=== PATIENT | female | born 1975 | race Caucasian/White ===

== ENCOUNTER 2022-02-03 09:54 | Outpatient (CLI) | payer OTHER, SELFPAY ==
--- NOTE | 2022-02-03 10:15 | MR_ITS ---
[address] [address] Phone:?[phone] Fax:?[phone] Referring Physician Information: Sacha Aldana M.D. [address] [place] [id number] Phone:?[phone] Fax:?[phone] Patient:Marion Ruiz D.O.B:?1975 Sex:?Female Phone:?[phone] [facility] MRN:?[id number] Exam Date:?02/03/2022 ? EXAM: MRI OF THE RIGHT SHOULDER CLINICAL INFORMATION: The patient is a 46-year-old female with right shoulder pain. Evaluate for recurrent rotator cuff tear. PRIOR SURGERY: The patient has a history of prior right shoulder surgery. COMPARISON STUDIES: Comparison is made to the prior MRI examination dated 03/08/2019. TECHNICAL INFORMATION: Using a 1.5T MR scanner and a localizing shoulder surface coil: 3.0 mm?coronal obliques: PD, T2, STIR 3.0 mm?sagittal obliques: PD, T2 3.0 mm?axials: PD, T2 FINDINGS: Articular/Extraarticular collections: Effusion: None. Subacromial/subdeltoid: No evidence for bursitis. Subcoracoid: No evidence for bursitis. Osseous structures: Proximal humerus: Postsurgical changes of the greater tuberosity region are present, in keeping with prior supraspinatus tendon repair. No evidence for greater or lesser tuberosity fracture can be seen. No Hill-Sachs or reverse Hill-Sachs lesion is identified. Glenoid: No acute bony abnormality of the glenoid fossa or glenoid neck can be seen. Acromioclavicular joint: There is evidence for prior acromioplasty and distal clavicular resection. Coracoacromial arch: Acromion morphology: Type I to II. No evidence for os acromiale. Acromiohumeral space: At the lower limits of normal. Coracohumeral space: Within normal limits. Rotator cuff and deltoid: Supraspinatus: The patient is status post supraspinatus repair. No evidence for recurrent, full-thickness tearing or retraction of the supraspinatus tendon fibers can be seen. No partial-thickness tearing is noted. No atrophic changes of the supraspinatus muscle belly are present. Infraspinatus: Mild infraspinatus tendinosis can be seen. There is no evidence for full or partial-thickness tearing. No atrophic changes of the infraspinatus muscle belly are identified. Teres minor: No evidence for tendinosis, tearing, or associated muscle belly atrophy. Subscapularis: Mild subscapularis tendinosis can be seen. There is no evidence for full or partial-thickness tearing. No atrophic changes of the subscapularis muscle belly are noted. Deltoid: No evidence for strain or tearing. Biceps tendon: The intra-articular and biceps sulcus portions of the biceps tendon are normal. There is no evidence for rupture, dislocation, or subluxation. Glenohumeral joint and labrum: Articular Cartilage: No chondral injuries along the articular surfaces of the glenohumeral articulation can be seen. No osteoarthritic changes are identified. Labrum: The anterior, posterior, superior, and inferior portions of the labrum appear intact. No evidence for paralabral ganglion cyst formation can be seen. Capsular Soft Tissues: Mild thickening of the capsular structures of the glenohumeral articulation can be seen in the region of the axillary recess and rotator cuff interval. No definite MR signs of adhesive capsulitis are noted. CONCLUSION: 1. Status post supraspinatus repair. There is no evidence for recurrent full or partial-thickness tearing of the supraspinatus tendon fibers. 2. Mild infraspinatus and subscapularis tendinosis. 3. Status post acromioplasty and distal clavicular resection. 4. No definite injuries to the glenoid labrum or long head of the biceps can be seen. 5. No osteoarthritic changes of the glenohumeral articulation are present. [facility] Electronically signed on 02/03/2022 1:01:00 PM by Juan J Finley M.D.
== END 2022-02-03 09:55 | disposition home or self-care (01) ==
LOC: MRI 09:54
PROVIDERS: PCP Physician Assistant Medical; Visit Provider Orthopaedic Surgery
DX: M25.511 Pain in right shoulder (principal)
CPT/HCPCS: 73221

== ENCOUNTER 2022-04-08 07:49 | Inpatient (IN) | payer OTHER, SELFPAY ==
[2022-04-08] VITALS (14 sets, daily range): BP systolic 103–157; BP diastolic 77–91; PULSE 85–109; RESP 14–20; TEMP 36.5–36.8; O2SAT 94–98; BMI 40.7; BMI 40.6
--- NOTE | 2022-04-08 08:12 | CRLHL7_ITS ---
For Patients: As a result of the Century Cures Act, medical imaging exams and procedure reports are released immediately into your electronic medical record. You may view this report before your referring provider. If you have questions, please contact your health care provider. INDICATION: Severe back pain and epigastric pain; nausea. COMPARISON: CT abdomen and pelvis without intravenous or oral contrast September 18, 2014. TECHNIQUE: CT abdomen and pelvis with intravenous contrast; coronal and sagittal reformats. FINDINGS: Calcified granulomas left lingula and right middle lobe. Status post gastric bypass surgery. Mild diffuse fatty infiltration of the liver. No focal hepatic or splenic pathology. Peripancreatic inflammatory changes surrounding the head and uncinate process of the pancreas indicating acute pancreatitis. No evidence of pancreatic ductal dilatation. No evidence of pancreatic necrosis. Status post cholecystectomy. No adrenal pathology. No kidney stones or obstructive uropathy. no retroperitoneal lymphadenopathy. No evidence of abdominal or pelvic ascites. No pneumoperitoneum or intestinal obstruction. Status post hysterectomy. Impression : Acute pancreatitis without any evidence of pancreatic necrosis. 1. Status post cholecystectomy and gastric bypass surgery. 2. Mild diffuse fatty infiltration of the liver. Please note that all CT scans at this facility use dose modulation, iterative reconstruction, and/or weight-based dosing when appropriate to reduce radiation dose to as low as reasonably achievable. Dictated by Ning Marcelino MD @ 04/08/2022 9:35:08 AM (Electronically Signed)
--- NOTE | 2022-04-08 08:14 | ED_ITS ---
HPI - General Adult General Chief complaint: Back Injury/Pain Stated complaint: severe back pain Time Seen by Provider: 04/08/22 08:16 History of Present Illness HPI narrative: This 46-year-old female comes in reporting upper epigastric pain and back pain. This pain woke her up early this morning. She states that it is 7/10 in severity. She has associated nausea but no vomiting or diarrhea she does not knee injury event or strenuous activity. She states that the pain is worse with the bumps in the car ride on the way here. She has a remote history of gastric bypass 9 years ago. She has had her gallbladder and appendix removed. She does not report any prior problems. Related Data Home Medications Medication Instructions Recorded Confirmed cyclobenzaprine 5 mg tablet 5 mg PO DAILY PRN 01/25/22 04/08/22 estradiol 2 mg tablet 2 mg PO DAILY 01/25/22 04/08/22 multivitamin 1 tab PO QAM 01/25/22 04/08/22 omeprazole 20 mg capsule,delayed 20 mg PO DAILY 01/25/22 02/21/22 release sertraline 50 mg tablet 50 mg PO DAILY 01/25/22 04/08/22 tramadol 50 mg tablet 50 mg PO Q12H PRN 01/25/22 04/08/22 varenicline 1 mg tablet 1 mg PO BID 01/25/22 04/08/22 cholecalciferol (vitamin D3) 125 125 mcg PO DAILY 04/08/22 04/08/22 mcg (5,000 unit) capsule metformin 500 mg tablet 500 mg PO DAILY 04/08/22 04/08/22 sertraline 100 mg tablet 100 mg PO DAILY 04/08/22 04/08/22 spironolactone 100 mg tablet 100 mg PO DAILY 04/08/22 04/08/22 Allergies Allergy/AdvReac Type Severity Reaction Status Date / Time cefaclor Allergy Verified 02/21/22 14:40 Penicillins Allergy Verified 02/21/22 14:40 Sulfa (Sulfonamide Allergy Anaphylaxis Verified 02/21/22 14:40 Antibiotics) yellow dye Allergy Verified 02/21/22 14:40 Review of Systems Status of ROS: Reports: 10 or more systems reviewed and unremarkable except as noted in History and below Narrative: Constitutional: No fevers, no weight gain or loss. Eyes: No discharge. No vision changes. HENT: No congestion, no sore throat, no ear pain. Cardiovascular: No chest pain, no palpitations. Respiratory: No shortness of breath, no wheezes, no cough. Gastrointestinal: No vomiting, no diarrhea. Upper epigastric abdominal pain radiating through to the back. Genitourinary: No dysuria, no hematuria. Musculoskeletal: Normal range of motion. Skin: No rashes, no pruritis. Neurological: No dizziness, weakness, sensory change, speech change. Endo/Heme/Allergies: No bruising or bleeding. No polydipsia. Pysch: no suicidality, no anxiety, no insomnia. All other systems reviewed and are negative. [facility] Medical History Depression GERD (gastroesophageal reflux disease) Sleep apnea Surgical History H/O gastric bypass History of appendectomy History of arthroscopy of shoulder History of carpal tunnel release of both wrists History of cholecystectomy History of hysterectomy History of removal of both ovaries Status post arthroscopy of right shoulder (04/11/19) Social History Smoking Status: Former smoker What tobacco products do you use: cigarettes Smoking quit date/years: >15 years ago Do you use any of these nicotine containing products: None Second hand tobacco smoke exposure: No How often do you have a drink containing alcohol: never AUDIT-C Alcohol total score: 0 Non-prescribed substance use: denies use Exam Narrative: Exam Narrative: Constitutional: Well-developed, well-nourished, no acute distress. HEENT: Normocephalic, atraumatic. Neck: Normal range of motion. Nontender. Supple. Heart: Regular. No murmurs. Normal rate. Intact distal pulses. Lungs: Clear to auscultation. No chest discomfort. No wheezes, rhonchi, or rales. Abdomen: Normal bowel sounds. Tenderness in the upper epigastric region. Mild rebound tenderness. Genitalia: Deferred. Back: No midline tenderness. Normal range of motion. Extremities: Normal range of motion. No injury. Skin: Intact. No rash. Warm. No erythema or pallor. Neurologic: No altered sensation. No weakness. Alert and oriented. Psychiatric: No suicidality. No anxiety or depression. No insomnia. Nursing notes and vitals signs are reviewed. Const: Vital Signs, click to edit/add: Vital Signs - 24 hr 04/08/22 07:56 04/08/22 08:46 Temperature 98.0 F Pulse Rate [Right Pulse Oximeter] 109 H 92 Respiratory Rate 20 18 Blood Pressure [Ri ght Upper Arm] 157/91 H 135/77 Pulse Oximetry 97 94 Oxygen Delivery Me thod Room Air Room Air Course Vital Signs Vital signs: Initial Vital Signs Temperature 98.0 F 04/08/22 07:56 Temperature Source Temporal Artery Scan 04/08/22 07:56 Pulse Rate 109 H 04/08/22 07:56 Pulse Rhythm 04/08/22 07:56 Respiratory Rate 20 04/08/22 07:56 Blood Pressure 157/91 H 04/08/22 07:56 Blood Pressure Mean 113 04/08/22 07:56 Blood Pressure Position Sitting 04/08/22 07:56 Pulse Oximetry 97 04/08/22 07:56 Oxygen Delivery Method 04/08/22 07:56 Vital Signs Temperature 98.0 F 04/08/22 07:56 Pulse Rate 109 H 04/08/22 07:56 Respiratory Rate 20 04/08/22 07:56 Blood Pressure 157/91 H 04/08/22 07:56 Pulse Oximetry 97 04/08/22 07:56 Oxygen Delivery Method 04/08/22 07:56 Temperature 98.0 F 04/08/22 07:56 Pulse Rate 92 04/08/22 08:46 Respiratory Rate 18 04/08/22 08:46 Blood Pressure 135/77 04/08/22 08:46 Pulse Oximetry 94 04/08/22 08:46 Oxygen Delivery Method 04/08/22 08:46 Medical Decision Making MDM Narrative Medical decision making narrative: This patient comes in with upper epigastric abdominal pain radiating through to her back. An IV is established where she received 2 separate doses of Dilaudid 0.5 mg and a dose of Zofran 4 mg. She also received a L of normal saline. CT imaging of the abdomen and pelvis shows evidence of acute pancreatitis. Lipase is is significantly elevated at around 11,600. There are no other complications identified in her lab and imaging results. Her vital signs are within normal range. She is sufficiently treated with regard to her symptoms with the medicines given. I did speak with the hospitalist conduit helper, Dr. Macedo, who will arrange for her admission. Lab Data Labs: Lab Results 04/08/22 04/08/22 04/08/22 Range/Units 08:20 08:20 08:20 WBC 9.70 (4.50-11.00) K/uL RBC 5.19 (4.00-5.20) m/uL Hgb 14.4 (12.0-16.0) gm/dL Hct 45.7 (33.0-51.0) % MCV 88 (80-100) fL MCH 28 (26-34) pg MCHC 32 (32-36) gm/dL RDW Coeff of Monica 14.7 (11.5-15.5) % Plt Count 340 (140-440) K/uL Neut % (Auto) 71.2 (42.0-72.0) % Lymph % (Auto) 20.0 (20-44) % Summers % (Auto) 6.9 (0.0-11.0) % Eos % (Auto) 1.3 (0.0-7.0) % Baso % (Auto) 0.5 (0.0-3.0) % Neut # (Auto) 6.90 (1.7-7.0) K/uL Lymph # (Auto) 1.94 (0.90-2.90) K/uL Summers # (Auto) 0.70 (0.00-0.90) K/UL Eos # (Auto) 0.13 (0.00-0.50) K/uL Baso # (Auto) 0.05 (0.00-0.30) K/uL Sodium 142 (135-149) mmol/L Potassium 4.3 (3.6-5.1) mmol/L Chloride 108 (96-114) mmol/L Carbon Dioxide 26 (20-32) mmol/L BUN 10 (5-24) mg/dL Creatinine 0.7 (0.5-1.5) mg/dL Estimated Creat Clear 84.84 Estimated GFR 109 ml/min Glucose 85 (60-115) mg/dL Calcium 9.3 (8.4-10.6) mg/dL Total Bilirubin 0.3 (0.1-1.5) mg/dL Direct Bilirubin 0.1 (0.0-0.5) mg/dL AST 23 (12-35) U/L ALT 18 (4-35) U/L Alkaline Phosphatase 101 (40-150) U/L Total Protein 7.8 (6.0-8.3) g/dL Albumin 4.8 (3.3-5.0) g/dL Lipase 89582 H (23-300) U/L POC Troponin I 0.00 L (0.01-0.04) ng/ml Imaging Data CT scan - abdomen: Radiologist's impression: Acute pancreatitis without any evidence of pancreatic necrosis. 1. Status post cholecystectomy and gastric bypass surgery. 2. Mild diffuse fatty infiltration of the liver. Discharge Plan Discharge Clinical Impression: Acute pancreatitis Prescriptions: No Action varenicline 1 mg tablet 1 mg PO BID cyclobenzaprine 5 mg tablet 5 mg PO DAILY PRN sertraline 50 mg tablet 50 mg PO DAILY estradiol 2 mg tablet 2 mg PO DAILY omeprazole 20 mg capsule,delayed release(DR/EC) 20 mg PO DAILY tramadol 50 mg tablet 50 mg PO Q12H PRN multivitamin Tablet 1 tab PO QAM sertraline 100 mg tablet 100 mg PO DAILY cholecalciferol (vitamin D3) 125 mcg (5,000 unit) capsule 125 mcg PO DAILY metformin 500 mg tablet 500 mg PO DAILY spironolactone 100 mg tablet 100 mg PO DAILY Follow Up/Referrals: Marianela Ruby PA-C [Primary Care Provider] -
[2022-04-08 08:32] LABS: Basophils Absolute Auto 0.05 K/uL (0.00-0.30); Basophils Percent Auto 0.5 % (0.0-3.0); Eosinophils Absolute Auto 0.13 K/uL (0.00-0.50); Eosinophils Percent Auto 1.3 % (0.0-7.0); Hematocrit 45.7 % (33.0-51.0); Hemoglobin* 14.4 gm/dL (12.0-16.0); Immature Granulocytes Abs Auto 0.01 K/uL (0.00-0.30); Immature Granulocytes Pct Auto 0.1 %; Lymphocytes Absolute Auto 1.94 K/uL (0.90-2.90); Mean Corpuscular HGB Conc 32 gm/dL (32-36); Mean Corpuscular Hemoglobin 28 pg (26-34); Mean Corpuscular Volume 88 fL (80-100); Monocytes Percent Auto 6.9 % (0.0-11.0); Neutrophils Percent Auto 71.2 % (42.0-72.0); Platelet Count* 340 K/uL (140-440); RDW Coefficient of Variation % 14.7 % (11.5-15.5); Red Blood Count 5.19 m/uL (4.00-5.20)
[2022-04-08 08:35] LABS: Slide Review Reflex No
[2022-04-08] MEDS: HYDROmorphone 0.5 mg/0.5 ml inj IVP ×7 (08:41→20:19)
[2022-04-08] MEDS: ONDANSETRON 2 MG/ML inj 4 MG IVP (08:41)
[2022-04-08 08:44] LABS: Albumin* 4.8 g/dL (3.3-5.0); Chloride* 108 mmol/L (96-114); Sodium* 142 mmol/L (135-149)
[2022-04-08 08:45] LABS: Potassium* 4.3 mmol/L (3.6-5.1)
[2022-04-08 08:47] LABS: Alanine Aminotransferase* 18 U/L (4-35); Alkaline Phosphatase* 101 U/L (40-150); Aspartate Amino Transferase* 23 U/L (12-35); Bilirubin Direct* 0.1 mg/dL (0.0-0.5); Bilirubin Total* 0.3 mg/dL (0.1-1.5); Blood Urea Nitrogen* 10 mg/dL (5-24); Carbon Dioxide* 26 mmol/L (20-32); Glucose* 85 mg/dL (60-115); Total Protein* 7.8 g/dL (6.0-8.3)
[2022-04-08 08:48] LABS: Calcium* 9.3 mg/dL (8.4-10.6)
[2022-04-08 08:53] LABS: Creatinine* 0.7 mg/dL (0.5-1.5); Est. Creatinine Clearance* 84.84; Estimated Glomerular Filt Rate 109 ml/min
--- NOTE | 2022-04-08 09:02 | ED.NURSE ---
Report received from VIRIDIANA Alexis.
[2022-04-08 09:09] LABS: Lipase* 11624 U/L (23-300)
[2022-04-08] MEDS: 0.9 % SODIUM CHLORIDE 1000 ml 1,000 ML IV (09:22)
[2022-04-08 10:41] LABS: SARS PCR* Negative SARS-CoV-2 (Negative)
--- NOTE | 2022-04-08 11:12 | ED.NURSE ---
Report given to VIRIDIANA Serrano. Pt up to BR independently, tolerates well. Asking for pain meds before moving down to M/S.
--- NOTE | 2022-04-08 11:41 | PM.IMHP1 ---
Hospitalist- H&P: HPI History of Present Illness Date Seen: 04/08/22 Chief complaint: severe back pain Narrative: Marylu Ruiz is a 46 year old female with PMhx noted below including hx of obesity, PCOS (on metformin/aldactone), gastric bypass surgery, depression, tobacco use disorder presenting for evaluation of epigastric abdominal pain. The patient woke up this morning with epigastric abdominal pain, sharp, 10/10 radiating to back. She endorses nausea, denies vomiting. She denies chest pain, chest pressure, sob. In the ED Lipase noted to be >11,000. CT AP showed Acute pancreatitis without any evidence of pancreatic necrosis.Status post cholecystectomy and gastric bypass surgery. Mild diffuse fatty infiltration of the liver. She denies alcohol use, denies new medications. Denies hx of pancreatitis Review of Systems Status of ROS: Reports: 10 or more systems reviewed and unremarkable except as noted in History and below [facility] Medical History Depression GERD (gastroesophageal reflux disease) Sleep apnea Surgical History H/O gastric bypass History of appendectomy History of arthroscopy of shoulder History of carpal tunnel release of both wrists History of cholecystectomy History of hysterectomy History of removal of both ovaries Status post arthroscopy of right shoulder (04/11/19) Social History Smoking Status: Former smoker What tobacco products do you use: cigarettes Smoking quit date/years: >15 years ago Do you use any of these nicotine containing products: None Second hand tobacco smoke exposure: No How often do you have a drink containing alcohol: never AUDIT-C Alcohol total score: 0 Non-prescribed substance use: denies use Meds Home Medications and Allergies Home Medications Medication Instructions Recorded Confirmed Type estradiol 2 mg tablet 2 mg PO DAILY 01/25/22 04/08/22 History multivitamin 1 tab PO QAM 01/25/22 04/08/22 History omeprazole 20 mg capsule,delayed 20 mg PO BID 01/25/22 04/08/22 History release tramadol 50 mg tablet 50 mg PO Q12H PRN 01/25/22 04/08/22 History varenicline 1 mg tablet 1 mg PO BID 01/25/22 04/08/22 History cholecalciferol (vitamin D3) 125 125 mcg PO DAILY 04/08/22 04/08/22 History mcg (5,000 unit) capsule cyclobenzaprine 10 mg tablet 10 mg PO TID PRN 04/08/22 04/08/22 History metformin 500 mg tablet 500 mg PO BIDWM 04/08/22 04/08/22 History sertraline 100 mg tablet 150 mg PO DAILY 04/08/22 04/08/22 History spironolactone 100 mg tablet 100 mg PO DAILY 04/08/22 04/08/22 History Allergies Allergy/AdvReac Type Severity Reaction Status Date / Time cefaclor Allergy Verified 02/21/22 14:40 Penicillins Allergy Verified 02/21/22 14:40 Sulfa (Sulfonamide Allergy Anaphylaxis Verified 02/21/22 14:40 Antibiotics) yellow dye Allergy Verified 02/21/22 14:40 Exam Narrative: Exam Narrative: Gen: no acute distress HEENT: NCAT EOMI MMM CV: tachcardic; s1 s2 LCTAB Abd: mid epigastric tendernss Neuro: AOX3, CN intact MSK: age appropriate muscle mass Psych: appropriate affect Skin: warm, dry; no rash on face Const: Vital Signs, click to edit/add: Vital Signs - 24 hr 04/08/22 07:56 04/08/22 08:46 04/08/22 08:46 Temperature 98.0 F Pulse Rate 92 Pulse Rate [Right Pulse Oximeter] 109 H 92 Respiratory Rate 20 18 Blood Pressure Blood Pressure [Le ft Arm] Blood Pressure [Ri ght Upper Arm] 157/91 H 135/77 Pulse Oximetry 97 94 95 Oxygen Delivery Me thod Room Air Room Air 04/08/22 08:47 04/08/22 09:08 04/08/22 09:15 Temperature Pulse Rate 92 99 105 H Pulse Rate [Right Pulse Oximeter] Respiratory Rate Blood Pressure 135/77 Blood Pressure [Le ft Arm] Blood Pressure [Ri ght Upper Arm] Pulse Oximetry 95 96 95 Oxygen Delivery Me thod 04/08/22 09:30 04/08/22 09:35 04/08/22 09:45 Temperature Pulse Rate 99 101 H 101 H Pulse Rate [Right Pulse Oximeter] Respiratory Rate Blood Pressure Blood Pressure [Le ft Arm] Blood Pressure [Ri ght Upper Arm] Pulse Oximetry 94 95 96 Oxygen Delivery Me thod 04/08/22 10:00 04/08/22 11:29 04/08/22 11:34 Temperature 98.0 F 98.2 F Pulse Rate Pulse Rate [Right Pulse Oximeter] 88 Respiratory Rate 14 16 Blood Pressure Blood Pressure [Le ft Arm] 126/81 Blood Pressure [Ri ght Upper Arm] 129/79 Pulse Oximetry 98 97 Oxygen Delivery Me thod Room Air Hospitalist - H&P: Result Labs Labs: Short CBC 04/08/22 Range/Units 08:20 WBC 9.70 (4.50-11.00) K/uL Hgb 14.4 (12.0-16.0) gm/dL Hct 45.7 (33.0-51.0) % Plt Count 340 (140-440) K/uL BMP 04/08/22 08:20 Sodium 142 Potassium 4.3 Chloride 108 Carbon Dioxide 26 BUN 10 Creatinine 0.7 Glucose 85 Calcium 9.3 Liver Function 04/08/22 Range/Units 08:20 Total Bilirubin 0.3 (0.1-1.5) mg/dL Direct Bilirubin 0.1 (0.0-0.5) mg/dL AST 23 (12-35) U/L ALT 18 (4-35) U/L Alkaline Phosphatase 101 (40-150) U/L Albumin 4.8 (3.3-5.0) g/dL Assessment and Plan Assessment and plan (1) Acute pancreatitis: Status: Acute Plan Assessment: Marylu Ruiz is a 46 year old female with PMhx noted below including hx of obesity, PCOS (on metformin/aldactone), GERD gastric bypass surgery, depression, tobacco use disorder presenting for evaluation of epigastric abdominal pain. In the ED Lipase noted to be >11,000. CT AP showed Acute pancreatitis without any evidence of pancreatic necrosis.Status post cholecystectomy and gastric bypass surgery. Mild diffuse fatty infiltration of the liver. She denies alcohol use, denies new medications. 1. Acute pancreatitis; presumed idiopathic per now; r/o trglycerides; possibly secondary to medications (metformin, diuretics, etc) 2. Hx of GERD 3. Hx of KARI 4. Hx of PCOS 5. Hx of Depression and anxiety 6. Hx of Gastric Bypass 7. Hx of Lap esmer 8. Hx of Tobacco use disorder Plan 2 liters LR bolus then MIVF antiemetics pain control check TG/lipid panel hold metformin hold aldactone clear liquid diet if vomiting transition to NPO protonix repeat lipase/LFTs in AM Code-full DVT ppx-lovenox Dispo-Anticipated LOS 2 days then dc to home
[2022-04-08] MEDS: LACTATED RINGERS 1000 ML 1,000 ML 500 ML IV ×2 (12:03→14:17)
[2022-04-08] MEDS: PANTOPRAZOLE SODIUM 40 MG INJ IVP (12:04)
[2022-04-08] MEDS: OXYCODONE 5 MG TABLET PO ×2 (13:22→17:16)
[2022-04-08 13:54] LABS: Cholesterol* 159 mg/dL (90-199); Triglycerides* 200 mg/dL (40-149)
[2022-04-08 13:55] LABS: HDL Cholesterol* 44 mg/dL (>=50); LDL Cholesterol Calculated 75 mg/dL (<100)
[2022-04-08] MEDS: ACETAMINOPHEN 325 MG TABLET 650 MG PO (16:27)
[2022-04-08] MEDS: LACTATED RINGERS 1000 ML 1,000 ML 125 ML IV (16:30)
--- NOTE | 2022-04-08 18:46 | PC.NURSE ---
shift note: pt admit to rm @ 1100. Pt controlled with prn dilaudid, oxycodone and tylenol. pt rating abd pain 4-810. Pt tolerating clrs w/o nausea. BS hyperactive. Pt states last BM 04/08/22. IV patent to rt FA.
[2022-04-08] MEDS: MELATONIN 3 MG TABLET PO (20:19)
[2022-04-08] MEDS: ENOXAPARIN 40 MG/0.4 ML INJ SUBCUT (20:19)
[2022-04-09] MEDS: LACTATED RINGERS 1000 ML 1,000 ML 125 ML IV ×2 (00:04→06:49)
[2022-04-09] MEDS: OXYCODONE 5 MG TABLET PO ×5 (00:22→19:42)
[2022-04-09] MEDS: HYDROmorphone 0.5 mg/0.5 ml inj IVP ×5 (00:23→09:24)
[2022-04-09 03:00] VITALS: RESP 18
--- NOTE | 2022-04-09 05:53 | PC.NURSE ---
[id number]: Patient pleasant and cooperative. Rates pain 5-6/10. PRN Dilaudid, Oxycodone, and intermittent Aqua K pad use for relief. BS active. Passing small amount of gas per patient. Afebrile. Independent in room. Voiding large amounts of straw colored urine. Tolerating clears.
[2022-04-09 06:39] LABS: Basophils Absolute Auto 0.03 K/uL (0.00-0.30); Basophils Percent Auto 0.6 % (0.0-3.0); Eosinophils Absolute Auto 0.11 K/uL (0.00-0.50); Eosinophils Percent Auto 2.4 % (0.0-7.0); Hematocrit 38.9 % (33.0-51.0); Hemoglobin* 12.1 gm/dL (12.0-16.0); Immature Granulocytes Abs Auto 0.02 K/uL (0.00-0.30); Immature Granulocytes Pct Auto 0.4 %; Lymphocytes Absolute Auto 1.42 K/uL (0.90-2.90); Lymphocytes Percent Auto 30.5 % (20-44); Mean Corpuscular HGB Conc 31 gm/dL (32-36); Mean Corpuscular Hemoglobin 28 pg (26-34); Mean Corpuscular Volume 89 fL (80-100); Monocytes Percent Auto 8.2 % (0.0-11.0); Neutrophils Absolute Auto 2.69 K/uL (1.7-7.0); Neutrophils Percent Auto 57.9 % (42.0-72.0); Platelet Count* 284 K/uL (140-440); RDW Coefficient of Variation % 14.9 % (11.5-15.5); Red Blood Count 4.36 m/uL (4.00-5.20); White Blood Count* 4.65 K/uL (4.50-11.00)
[2022-04-09] MEDS: ACETAMINOPHEN 325 MG TABLET 650 MG PO ×2 (06:49→19:42)
[2022-04-09 06:54] LABS: Chloride* 106 mmol/L (96-114); Sodium* 140 mmol/L (135-149)
[2022-04-09 06:55] LABS: Potassium* 4.1 mmol/L (3.6-5.1); Slide Review Reflex No
[2022-04-09 06:57] LABS: Carbon Dioxide* 30 mmol/L (20-32); Creatinine* 0.6 mg/dL (0.5-1.5); Est. Creatinine Clearance* 98.98; Estimated Glomerular Filt Rate 113 ml/min; Lipase* 944 U/L (23-300)
[2022-04-09 06:59] LABS: Blood Urea Nitrogen* 5 mg/dL (5-24); Calcium* 8.5 mg/dL (8.4-10.6); Glucose* 80 mg/dL (60-115)
[2022-04-09 07:47] VITALS: BP 116/75; PULSE 84; RESP 16; TEMP 37.1; O2SAT 95
[2022-04-09] MEDS: estradioL 1 MG TABLET 2 MG PO (11:36)
[2022-04-09] MEDS: PANTOPRAZOLE SODIUM 40 MG INJ IVP (11:37)
[2022-04-09] MEDS: SERTRALINE 100 MG TABLET 150 MG PO (11:37)
[2022-04-09 11:48] VITALS: BP 128/85; PULSE 89; RESP 18; TEMP 36.6; O2SAT 96
[2022-04-09] MEDS: MAG HYDROX/ALUMINUM HYD/SIMETH 30 ML ORAL.SUSP 15 ML PO (14:38)
[2022-04-09 15:11] VITALS: BP 146/89; PULSE 89; RESP 18; TEMP 36.8; O2SAT 96
--- NOTE | 2022-04-09 16:13 | P.IMPN_ITS ---
Progress Note: A&P Assessment and plan (1) Acute pancreatitis: Problem details: Etiology not yet determined. Does not consume alcoholic beverages. Status post cholecystectomy a number years ago. Status: Acute Assessment and Plan: Slowly improving. Advance diet as tolerated. Saline lock IV. Attempt to transition to oral analgesic meds. Resume her MiraLax daily. Add senna scheduled. (2) History of cholecystectomy: Status: Acute Plan 1. Reviewed with patient and . Answered their questions. 2. Patient and agreeable to above stated plans and recommendations. Time Spent With Patient Total time spent: 30 minutes Subjective Time Seen by Provider: 10:30 Date Seen: 04/09/22 Interval history: Hospital day 2. Abdominal pain slowly improving. Pain is constant but worse with movement. Tolerating clear liquids at this time. Denies nausea vomiting. Tolerating increased movements. Exam Narrative: Exam Narrative: Appears comfortable, no acute distress when at rest. Alert, oriented to self, place, time, situation. Friendly, articulate, cooperative. Mood and affect are congruent. Moves slowly and methodically as if in discomfort or pain. Lungs are clear to auscultation. Heart tones with regular rhythm. Abdomen with active bowel sounds, soft, nontender. Extremities without edema. Independent transfer, station and gait. No tremor asterixis or ataxia. Skin is warm, dry, intact. Const: Vital Signs, click to edit/add: Vital Signs - 24 hr 04/08/22 19:00 04/08/22 23:00 04/09/22 03:00 Temperature 97.7 F 98.0 F Pulse Rate [Left B rachial] 88 88 Respiratory Rate 16 18 18 Blood Pressure [Le ft Arm] 139/84 103/77 Pulse Oximetry 96 96 Oxygen Delivery Me thod Room Air Room Air 04/09/22 07:47 04/09/22 11:48 04/09/22 15:11 Temperature 98.7 F 97.8 F 98.3 F Pulse Rate [Left B rachial] 84 89 89 Respiratory Rate 16 18 18 Blood Pressure [Le ft Arm] 116/75 128/85 146/89 H Pulse Oximetry 95 96 96 Oxygen Delivery Me thod Room Air Room Air Room Air Documenting provider has reviewed patient's vital signs: yes Labs Labs: Laboratory Results - last 24 hr 04/09/22 04/09/22 05:40 05:40 WBC 4.65 RBC 4.36 Hgb 12.1 Hct 38.9 MCV 89 MCH 28 MCHC 31 L RDW Coeff of Monica 14.9 Plt Count 284 Neut % (Auto) 57.9 Lymph % (Auto) 30.5 Lipscomb % (Auto) 8.2 Eos % (Auto) 2.4 Baso % (Auto) 0.6 Neut # (Auto) 2.69 Lymph # (Auto) 1.42 Lipscomb # (Auto) 0.40 Eos # (Auto) 0.11 Baso # (Auto) 0.03 Sodium 140 Potassium 4.1 Chloride 106 Carbon Dioxide 30 BUN 5 Creatinine 0.6 Estimated Creat Clear 98.98 Estimated GFR 113 Glucose 80 Calcium 8.5 Lipase 944 H
--- NOTE | 2022-04-09 18:18 | PC.NURSE ---
Shift Summary: Patient c/o pain rating 4-5/10 throughout shift, managed well with PRN oxycodone. Patient verbalized that pain is worse with ambulation/repositioning. Was able to find good relief around noon and take a nap. Tolerating diet well, no c/o nausea. Continues to be independent. Voiding large amounts.
[2022-04-09] MEDS: ENOXAPARIN 40 MG/0.4 ML INJ SUBCUT (19:42)
[2022-04-09] MEDS: MELATONIN 3 MG TABLET PO (19:42)
[2022-04-09 19:46] VITALS: BP 134/86; PULSE 76; RESP 18; TEMP 36.9; O2SAT 97
[2022-04-09] MEDS: SENNOSIDES/DOCUSATE TABLET 2 TAB PO (20:26)
--- NOTE | 2022-04-10 06:40 | PC.NURSE ---
End of shift status [id number] Pt alert and oriented. PRN oxy and tylenol given at bedtime. VSS on room air, wearing CPAP at night. Up independently in room. Voiding without difficulty. Pt observed resting throughout night.
[2022-04-10] MEDS: OXYCODONE 5 MG TABLET PO (08:08)
[2022-04-10 08:18] VITALS: BP 134/85; PULSE 84; RESP 16; TEMP 36.5; O2SAT 95
[2022-04-10] MEDS: SENNOSIDES/DOCUSATE TABLET 2 TAB PO (09:06)
[2022-04-10] MEDS: polyethylene glycoL 3350 17 GM PACK PO (09:06)
[2022-04-10] MEDS: SERTRALINE 100 MG TABLET 150 MG PO (09:06)
[2022-04-10] MEDS: estradioL 1 MG TABLET 2 MG PO (09:06)
[2022-04-10] MEDS: ACETAMINOPHEN 325 MG TABLET 650 MG PO (09:31)
[2022-04-10] MEDS: MAG HYDROX/ALUMINUM HYD/SIMETH 30 ML ORAL.SUSP 15 ML PO (09:32)
[2022-04-10 12:00] VITALS: BP 145/89; PULSE 84; RESP 18; TEMP 36.6; O2SAT 95
[2022-04-10] MEDS: PANTOPRAZOLE SODIUM 40 MG INJ IVP (12:21)
--- NOTE | 2022-04-10 13:41 | PC.NURSE ---
Discharge: Patient tolerating regular soft diet. Discussed diet changes, discharge instructions and follow ups. IV removed with catheter intact. Patient states shes passing gas, bowel sounds active. Pain well controlled with PRN oxycodone. Patient discharged from floor @ 1340, here to take home.
--- NOTE | 2022-04-11 15:37 | P.DS_ITS ---
DS: Providers Provider Time Seen by Provider: 10:00 Date Seen: 04/10/22 Date of admission: 04/08/22 11:44 Primary care physician: Marianela Ruby PA-C Admitting Clinician: Tip Roldan MD Attending Physician on discharge: Hardy Carpenter MD Date of Discharge: 04/10/22 DS: Diagnosis Discharge Diagnosis (1) Acute pancreatitis: Status: Acute Problem details: Etiology not yet determined: does not consume alcoholic beverages; status post cholecystectomy a number years ago; triglyceride level 200. (2) History of cholecystectomy: Status: Acute DS: Summary Hospital Course Hospital Course: Marylu Ruiz is a 46 year old female with PMhx noted below including hx of obesity, PCOS (on metformin/aldactone), gastric bypass surgery, depression, tobacco use disorder presenting for evaluation of epigastric abdominal pain. The patient woke up this morning with epigastric abdominal pain, sharp, 10/10 radiating to back. She endorses nausea, denies vomiting. She denies chest pain, chest pressure, sob. In the ED Lipase noted to be >11,000. CT AP showed?Acute pancreatitis without any evidence of pancreatic necrosis.Status post cholecystectomy and gastric bypass surgery. Mild diffuse fatty infiltration of the liver. She denies alcohol use, denies new medications. Denies hx of pancreatitis. In-hospital treated with as needed analgesics and antiemetics, IV fluids. Over time we increased her diet to a soft diet with low residue low-fat. She tolerated this. At time of discharge her symptoms had almost entirely resolved. We did recommend that if her pain was persistent or getting worse or nausea and vomiting recurred that she return to the hospital for reassessment. Otherwise keep follow-up appointment with primary care physician as establish. Status at Discharge Functional status at discharge: independent ambulation Overall status at discharge: patient is progressing back to baseline Time Spent with Patient Time attestation: Total time spent providing and/or coordinating discharge services: Time spent: Greater than 30 minutes Exam Narrative: Exam Narrative: Appears comfortable, no acute distress when at rest. Alert, oriented to self, place, time, situation.? Friendly, articulate, cooperative.? Mood and affect are congruent.? Moves slowly and methodically as if in discomfort or pain. Lungs are clear to auscultation.? Heart tones with regular rhythm.? Abdomen with active bowel sounds, soft, nontender.? Extremities without edema.? Independent transfer, station and gait.? No tremor asterixis or ataxia.? Skin is warm, dry, intact. Const: Documenting provider has reviewed patient's vital signs: yes DS: Data Imaging CT scan - abdomen: Attestation: I have reviewed the pertinent imaging results. Radiologist's impression: Impression : Acute pancreatitis without any evidence of pancreatic necrosis. 1. Status post cholecystectomy and gastric bypass surgery. 2. Mild diffuse fatty infiltration of the liver. Discharge Plan Discharge Disposition: Home, Self-Care Date of Admission: 04/08/22 11:44 Attending Provider on Discharge: Hardy Carpenter Primary Care Provider: Marianela Ruby Condition: Improved Anticipated Discharge Date/Time: 04/10/22 14:00 Discharge Medications: New oxycodone 5 mg Tablet 5 mg PO Q6H PRN (Reason: Pain) 7 Days Qty: 20 0RF Continued varenicline 1 mg tablet 1 mg PO BID estradiol 2 mg tablet 2 mg PO DAILY omeprazole 20 mg capsule,delayed release(DR/EC) 20 mg PO BID tramadol 50 mg tablet 50 mg PO Q12H PRN multivitamin Tablet 1 tab PO QAM sertraline 100 mg tablet 150 mg PO DAILY cholecalciferol (vitamin D3) 125 mcg (5,000 unit) capsule 125 mcg PO DAILY metformin 500 mg tablet 500 mg PO BIDWM spironolactone 100 mg tablet 100 mg PO DAILY cyclobenzaprine 10 mg tablet 10 mg PO TID PRN Discharge Orders: Discharge Order (Routine); Ordered 04/10/22 Ordered By: Hardy Carpenter Patient Education: Oxycodone, Rapid Release (By mouth), Pancreatitis (GEN), Low Fiber Diet (GEN) Additional Instructions: May return to work without any restrictions or limitations on Monday Activity Level: No Restrictions Discharge Diet: Low Fat/Low Cholesterol and Low Fiber Follow Up Appointments: Marianela Ruby PA-C [Primary Care Provider] - 04/22/22 2:20 pm (post Hospital visit at [facility]) Forms: [employer] Info Instructions
== END 2022-04-10 13:40 | disposition home or self-care (01) | DRG 440 ==
LOC: ED 09:13 → MEDSURG 11:31
PROVIDERS: Admitting Provider Hospitalist; Emergency Provider Emergency Medicine Emergency Medical Services; PCP Physician Assistant Medical; Visit Provider Hospitalist
DX: K85.90 Acute pancreatitis without necrosis or infection, unspecified (principal); K76.0 Fatty (change of) liver, not elsewhere classified; Z90.49 Acquired absence of other specified parts of digestive tract; Z98.84 Bariatric surgery status; R11.0 Nausea; M54.9 Dorsalgia, unspecified; R10.13 Epigastric pain; Z87.891 Personal history of nicotine dependence; Z96.611 Presence of right artificial shoulder joint; Z90.722 Acquired absence of ovaries, bilateral; Z90.710 Acquired absence of both cervix and uterus; Z98.890 Other specified postprocedural states
CPT/HCPCS: 36415; 74177; 80048; 80061; 80076; 83690; 84484; 85025; 87635; 94761; 99285; A9270; C9113; J1170; J1650; J2405; J7030; J7120; Q9967

== ENCOUNTER 2022-06-21 10:31 | Emergency (ER) | payer BC, SELFPAY ==
[2022-06-21] VITALS (12 sets, daily range): BP systolic 134–156; BP diastolic 82–99; PULSE 81–93; RESP 16; TEMP 37.6; O2SAT 94–100; BMI 40.7
--- NOTE | 2022-06-21 11:00 | CRLHL7_ITS ---
For Patients: As a result of the Century Cures Act, medical imaging exams and procedure reports are released immediately into your electronic medical record. You may view this report before your referring provider. If you have questions, please contact your health care provider. INDICATION: Chest pain. TECHNIQUE: Two-view chest. COMPARISON: None. FINDINGS: Clear lungs. Normal heart size and pulmonary vascularity. Normal included skeleton. IMPRESSION: Negative chest. Dictated by Alberto Quinn MD @ 06/21/2022 11:36:44 AM (Electronically Signed)
[2022-06-21 11:13] LABS: Basophils Absolute Auto 0.05 K/uL (0.00-0.30); Basophils Percent Auto 0.7 % (0.0-3.0); Eosinophils Absolute Auto 0.13 K/uL (0.00-0.50); Eosinophils Percent Auto 1.8 % (0.0-7.0); Hematocrit 43.1 % (33.0-51.0); Hemoglobin* 13.6 gm/dL (12.0-16.0); Immature Granulocytes Abs Auto 0.01 K/uL (0.00-0.30); Immature Granulocytes Pct Auto 0.1 %; Lymphocytes Absolute Auto 2.36 K/uL (0.90-2.90); Lymphocytes Percent Auto 31.8 % (20-44); Mean Corpuscular HGB Conc 32 gm/dL (32-36); Mean Corpuscular Hemoglobin 28 pg (26-34); Mean Corpuscular Volume 89 fL (80-100); Monocytes Percent Auto 6.9 % (0.0-11.0); Neutrophils Absolute Auto 4.36 K/uL (1.7-7.0); Neutrophils Percent Auto 58.7 % (42.0-72.0); Platelet Count* 355 K/uL (140-440); Red Blood Count 4.85 m/uL (4.00-5.20); White Blood Count* 7.42 K/uL (4.50-11.00)
[2022-06-21 11:15] LABS: Slide Review Reflex No
[2022-06-21] MEDS: KETOROLAC 15 MG/ML inj IVP (11:22)
[2022-06-21] MEDS: MORPHINE 4 MG/ML INJ IVP (11:22)
[2022-06-21 11:25] LABS: Chloride* 107 mmol/L (96-114); Sodium* 139 mmol/L (135-149)
[2022-06-21 11:26] LABS: Albumin* 4.3 g/dL (3.3-5.0); Potassium* 4.2 mmol/L (3.6-5.1)
[2022-06-21 11:29] LABS: Alkaline Phosphatase* 89 U/L (40-150); Aspartate Amino Transferase* 24 U/L (12-35); Bilirubin Direct* 0.3 mg/dL (0.0-0.5); Bilirubin Total* 0.3 mg/dL (0.1-1.5); Blood Urea Nitrogen* 13 mg/dL (5-24); Carbon Dioxide* 24 mmol/L (20-32); Creatinine* 0.6 mg/dL (0.5-1.5); Est. Creatinine Clearance* 98.98; Estimated Glomerular Filt Rate 113 ml/min; Glucose* 73 mg/dL (60-115); Lipase* 161 U/L (23-300); Total Protein* 7.6 g/dL (6.0-8.3)
[2022-06-21 11:30] LABS: Alanine Aminotransferase* 20 U/L (4-35); Calcium* 8.6 mg/dL (8.4-10.6)
[2022-06-21 11:32] LABS: C Reactive Protein* 0.6 mg/dL (0.5-1.0)
[2022-06-21 11:40] LABS: D Dimer Quantitative* < 0.27 ug/ml (0.00-0.50); NT Pro B Type NatriureticPept* < 20 pg/mL
--- NOTE | 2022-06-21 12:49 | ED.NURSE ---
Pt left prior to second POC trop collection
[2022-06-21] MEDS: GI COCKTAIL (VISC LIDO/ANTACID) 30 ML PO (12:51)
--- NOTE | 2022-06-21 13:02 | ED.GENADULT ---
HPI - General Adult General Date Seen: 06/21/22 Chief complaint: Chest Pain Stated complaint: Signs of heart attack, high pulse, chest heavy Time Seen by Provider: 06/21/22 10:50 Source: patient Mode of arrival: ambulatory Limitations: no limitations History of Present Illness HPI narrative: Patient is a 46-year-old woman with a history of pancreatitis and gastric bypass who presents with epigastric pain which started on Monday. She says that symptoms started right after she had an amaretto sour. She says that she does not drink very often, and after about of pancreatitis back in March she has not had anything to drink since. However, she thought a cocktail sounded good on Monday so she drink 1. She was about group home through when she says she developed what she describes as pretty severe epigastric pain. This severe pain did not last all that long but since then she has had epigastric pain and pressure that radiates through to the back. She had called the clinic today because she wanted to get set up with Gastroenterology to talk through things, she thought probably she developed pancreatitis again. When she called clinic though they told her that she had all the classic signs of heart attack and that she needed to be seen in the ER. She says that her chest feels somewhat heavy and that makes it a little hard to breathe but otherwise she does not feel short of breath. She has not had any diaphoresis or nausea. No vomiting. She has no other abdominal pain. The symptoms do not worsen with exertion. She has been able to eat. She does not have a history of anastamotic ulcers, she was maintained on Prilosec for quite some time after her gastric bypass, but then says she had her hiatal hernia fixed last year and since then she has had no problems with reflux so she stopped her Prilosec. Since Monday she does say that she has been having heartburn symptoms again. Related Data Home Medications Medication Instructions Recorded Confirmed estradiol 2 mg tablet 2 mg PO DAILY 01/25/22 06/21/22 multivitamin 1 tab PO QAM 01/25/22 06/21/22 omeprazole 20 mg capsule,delayed 20 mg PO BID 01/25/22 06/21/22 release tramadol 50 mg tablet 50 mg PO Q12H PRN 01/25/22 06/21/22 varenicline 1 mg tablet 1 mg PO BID 01/25/22 06/21/22 cholecalciferol (vitamin D3) 125 125 mcg PO DAILY 04/08/22 04/08/22 mcg (5,000 unit) capsule cyclobenzaprine 10 mg tablet 10 mg PO TID PRN 04/08/22 06/21/22 metformin 500 mg tablet 500 mg PO BIDWM 04/08/22 06/21/22 sertraline 100 mg tablet 150 mg PO DAILY 04/08/22 06/21/22 doxycycline hyclate 100 mg tablet mg 06/21/22 ergocalciferol (vitamin D2) 1,250 06/21/22 mcg (50,000 unit) capsule fluconazole 150 mg tablet mg 06/21/22 Previous Rx's Medication Instructions Recorded oxycodone 5 mg tablet 5 mg PO Q6H PRN Pain 7 days #20 04/10/22 tabs Allergies Allergy/AdvReac Type Severity Reaction Status Date / Time cefaclor Allergy Verified 02/21/22 14:40 Penicillins Allergy Verified 02/21/22 14:40 Sulfa (Sulfonamide Allergy Anaphylaxis Verified 02/21/22 14:40 Antibiotics) yellow dye Allergy Verified 02/21/22 14:40 Review of Systems Status of ROS: Reports: 10 or more systems reviewed and unremarkable except as noted in History and below PFSH PFSH Medical History Depression GERD (gastroesophageal reflux disease) Sleep apnea Surgical History H/O gastric bypass History of appendectomy History of arthroscopy of shoulder History of carpal tunnel release of both wrists History of cholecystectomy History of hysterectomy History of removal of both ovaries Status post arthroscopy of right shoulder (04/11/19) Social History Highest level of school completed/degree received: Associate degree: occupational, technical, vocational program Smoking Status: Former smoker What tobacco products do you use: cigarettes Smoking quit date/years: >15 years ago Do you use any of these nicotine containing products: None Second hand tobacco smoke exposure: No How often do you have a drink containing alcohol: never AUDIT-C Alcohol total score: 0 Non-prescribed substance use: denies use Caffeine: No service: No Exam Narrative: Exam Narrative: Vital signs as noted above. In general, an alert, comfortable-appearing woman. Breathing easily. Head: Normocephalic, atraumatic. Eyes: Pupils are equal reactive. Extraocular movements are full. Conjunctivae are normal. ENT: Mucous membranes are moist. Throat is normal. Neck: Supple without lymphadenopathy. Heart: Regular rate and rhythm. No murmur or rub. Lungs: Clear bilaterally. No increased work of breathing, crackles or wheezes. Abdomen: Soft and nontender. No organomegaly. Extremities: Well perfused. No edema. No calf tenderness. Pulses intact. Neurologic: Patient is alert and oriented to person and place. Speech is fluent. Face is symmetric. Moves all extremities equally. Affect: Normal. Skin: Warm and dry. Well perfused. Const: Vital Signs, click to edit/add: Vital Signs - 24 hr 06/21/22 10:44 06/21/22 11:00 06/21/22 11:01 Temperature 99.6 F Pulse Rate Pulse Rate [Left P ulse Oximeter] 93 Respiratory Rate 16 Blood Pressure 134/82 Blood Pressure [Le ft Upper Arm] 136/92 H Pulse Oximetry 97 100 Oxygen Delivery Me thod Room Air 06/21/22 11:17 06/21/22 11:30 06/21/22 11:32 Temperature Pulse Rate 87 87 92 Pulse Rate [Left P ulse Oximeter] Respiratory Rate Blood Pressure 156/92 H Blood Pressure [Le ft Upper Arm] Pulse Oximetry 95 97 95 Oxygen Delivery Me thod 06/21/22 11:45 06/21/22 12:01 06/21/22 12:02 Temperature Pulse Rate 82 83 83 Pulse Rate [Left P ulse Oximeter] Respiratory Rate Blood Pressure 145/99 H Blood Pressure [Le ft Upper Arm] Pulse Oximetry 94 95 97 Oxygen Delivery Me thod 06/21/22 12:15 06/21/22 12:30 06/21/22 12:31 Temperature Pulse Rate 86 81 86 Pulse Rate [Left P ulse Oximeter] Respiratory Rate Blood Pressure 138/89 Blood Pressure [Le ft Upper Arm] Pulse Oximetry 94 97 97 Oxygen Delivery Me thod Documenting provider has reviewed patient's vital signs: yes Course Course Hospital Course: On arrival, she had an EKG which shows a normal sinus rhythm, ventricular rate of 92. No acute ST segment changes. T-waves are normal. Initial troponin was 0. I checked a number of labs including a CBC which was normal, she had a normal metabolic panel, blood sugar was 73, her LFTs were normal, CRP was 0.6. BNP was less than 20. Lipase was notably normal at 161. I had ordered a 2nd troponin just for completeness, but she was inadvertently discharged prior to the 2nd troponin. Diagnostic considerations included acute coronary syndrome, pancreatitis, choledocholithiasis, dissection, esophageal rupture, esophagitis, gastric ulcer, gastritis, among others. She did have a chest x-ray which by my review is negative. There is no evidence of mediastinal air, the mediastinum is normal. Her blood pressure here is essentially normal, 136/92 on arrival. Symptoms have been present since Monday, D-dimer was less than 0.27. I do not think this represents dissection or PE. She has also had symptoms now for 5 days with a normal EKG and negative troponin. Despite the absence of the 2nd troponin I do not think that acute coronary syndrome is likely given duration of symptoms and negative troponin. Her lipase is normal today, have discussed with her I do not think this represents pancreatitis today. I do think that given that she is off of her proton pump inhibitor that she may have developed some gastritis or gastric ulcers. She had initially some morphine for pain control, she requested something for her heartburn and had a GI cocktail with significant improvement. I think it would be martienz for her to restart the omeprazole, then would like her to follow up. She does plan to follow-up with gastroenterology. If at any time she has worsening or severe symptoms, severe pain, vomiting blood or black or bloody stools, fever, etcetera, she should return to the emergency department. Otherwise I think Gastroenterology follow-up is appropriate. I recommended omeprazole 40 mg daily for 2 weeks and then she can drop down to 20 mg. She plans to avoid alcohol which I think is a good idea at this time. Should avoid NSAIDs as well. Vital Signs Vital signs: Initial Vital Signs Temperature 99.6 F 06/21/22 10:44 Temperature Source Temporal Artery Scan 06/21/22 10:44 Pulse Rate 93 06/21/22 10:44 Pulse Rhythm 06/21/22 10:44 Pulse Strength 3+ Normal 06/21/22 10:44 Respiratory Rate 16 06/21/22 10:44 Blood Pressure 136/92 H 06/21/22 10:44 Blood Pressure Mean 106 06/21/22 10:44 Blood Pressure Position Sitting 06/21/22 10:44 Pulse Oximetry 97 06/21/22 10:44 Oxygen Delivery Method 06/21/22 10:44 Vital Signs Temperature 99.6 F 06/21/22 10:44 Pulse Rate 93 06/21/22 10:44 Respiratory Rate 16 06/21/22 10:44 Blood Pressure 136/92 H 06/21/22 10:44 Pulse Oximetry 97 06/21/22 10:44 Oxygen Delivery Method 06/21/22 10:44 Temperature 99.6 F 06/21/22 10:44 Pulse Rate 86 06/21/22 12:31 Respiratory Rate 16 06/21/22 10:44 Blood Pressure 138/89 06/21/22 12:31 Pulse Oximetry 97 06/21/22 12:31 Oxygen Delivery Method 06/21/22 10:44 Medical Decision Making Lab Data Labs: Lab Results 06/21/22 06/21/22 06/21/22 Range/Units 10:50 10:50 10:50 WBC 7.42 (4.50-11.00) K/uL RBC 4.85 (4.00-5.20) m/uL Hgb 13.6 (12.0-16.0) gm/dL Hct 43.1 (33.0-51.0) % MCV 89 (80-100) fL MCH 28 (26-34) pg MCHC 32 (32-36) gm/dL RDW Coeff of Monica 14.0 (11.5-15.5) % Plt Count 355 (140-440) K/uL Neut % (Auto) 58.7 (42.0-72.0) % Lymph % (Auto) 31.8 (20-44) % [place] % (Auto) 6.9 (0.0-11.0) % Eos % (Auto) 1.8 (0.0-7.0) % Baso % (Auto) 0.7 (0.0-3.0) % Neut # (Auto) 4.36 (1.7-7.0) K/uL Lymph # (Auto) 2.36 (0.90-2.90) K/uL [place] # (Auto) 0.50 (0.00-0.90) K/UL Eos # (Auto) 0.13 (0.00-0.50) K/uL Baso # (Auto) 0.05 (0.00-0.30) K/uL D-Dimer Quant (PE/DVT) < 0.27 (0.00-0.50) ug/ml Sodium 139 (135-149) mmol/L Potassium 4.2 (3.6-5.1) mmol/L Chloride 107 (96-114) mmol/L Carbon Dioxide 24 (20-32) mmol/L BUN 13 (5-24) mg/dL Creatinine 0.6 (0.5-1.5) mg/dL Estimated Creat Clear 98.98 Estimated GFR 113 ml/min Glucose 73 (60-115) mg/dL Calcium 8.6 (8.4-10.6) mg/dL Total Bilirubin 0.3 (0.1-1.5) mg/dL Direct Bilirubin 0.3 (0.0-0.5) mg/dL AST 24 (12-35) U/L ALT 20 (4-35) U/L Alkaline Phosphatase 89 (40-150) U/L C-Reactive Protein 0.6 (0.5-1.0) mg/dL NT-Pro-B Natriuret Pep < 20 pg/mL Total Protein 7.6 (6.0-8.3) g/dL Albumin 4.3 (3.3-5.0) g/dL Lipase 161 (23-300) U/L POC Troponin I (0.01-0.04) ng/ml 06/21/22 Range/Units 11:03 WBC (4.50-11.00) K/uL RBC (4.00-5.20) m/uL Hgb (12.0-16.0) gm/dL Hct (33.0-51.0) % MCV (80-100) fL MCH (26-34) pg MCHC (32-36) gm/dL RDW Coeff of Monica (11.5-15.5) % Plt Count (140-440) K/uL Neut % (Auto) (42.0-72.0) % Lymph % (Auto) (20-44) % [place] % (Auto) (0.0-11.0) % Eos % (Auto) (0.0-7.0) % Baso % (Auto) (0.0-3.0) % Neut # (Auto) (1.7-7.0) K/uL Lymph # (Auto) (0.90-2.90) K/uL [place] # (Auto) (0.00-0.90) K/UL Eos # (Auto) (0.00-0.50) K/uL Baso # (Auto) (0.00-0.30) K/uL D-Dimer Quant (PE/DVT) (0.00-0.50) ug/ml Sodium (135-149) mmol/L Potassium (3.6-5.1) mmol/L Chloride (96-114) mmol/L Carbon Dioxide (20-32) mmol/L BUN (5-24) mg/dL Creatinine (0.5-1.5) mg/dL Estimated Creat Clear Estimated GFR ml/min Glucose (60-115) mg/dL Calcium (8.4-10.6) mg/dL Total Bilirubin (0.1-1.5) mg/dL Direct Bilirubin (0.0-0.5) mg/dL AST (12-35) U/L ALT (4-35) U/L Alkaline Phosphatase (40-150) U/L C-Reactive Protein (0.5-1.0) mg/dL NT-Pro-B Natriuret Pep pg/mL Total Protein (6.0-8.3) g/dL Albumin (3.3-5.0) g/dL Lipase (23-300) U/L POC Troponin I 0.00 L (0.01-0.04) ng/ml Discharge Plan Discharge Clinical Impression: Acute epigastric pain Patient Disposition: Home, Self-Care Condition: Improved Instructions: Epigastric Pain (ED) Additional Instructions: I would recommend that you restart omeprazole, 40 mg daily for the next 2 weeks, then you can go down to 20 mg daily. Follow-up with gastroenterology as planned. If at any time you have severe pain, black or bloody stools, vomiting blood, fever or other acute new symptoms, return to the emergency department. Your labs today including your lipase (161) were all normal. There was no evidence of a heart attack. Prescriptions: No Action varenicline 1 mg tablet 1 mg PO BID estradiol 2 mg tablet 2 mg PO DAILY omeprazole 20 mg capsule,delayed release(DR/EC) 20 mg PO BID tramadol 50 mg tablet 50 mg PO Q12H PRN multivitamin Tablet 1 tab PO QAM fluconazole 150 mg tablet ergocalciferol (vitamin D2) 1,250 mcg (50,000 unit) capsule Label Comments: TAKE 1 CAPSULE BY MOUTH 1 TIME WEEKLY FOR 52 DOSES doxycycline hyclate 100 mg tablet sertraline 100 mg tablet 150 mg PO DAILY cholecalciferol (vitamin D3) 125 mcg (5,000 unit) capsule 125 mcg PO DAILY metformin 500 mg tablet 500 mg PO BIDWM cyclobenzaprine 10 mg tablet 10 mg PO TID PRN oxycodone 5 mg Tablet 5 mg PO Q6H PRN (Reason: Pain) 7 Days Qty: 20 0RF Follow Up/Referrals: aMrianela Ruby PAPam [Primary Care Provider] - Stand Alone Forms: [facility] Info Inst[facility]
== END 2022-06-21 12:43 | disposition home or self-care (01) ==
PROVIDERS: Emergency Provider Emergency Medicine; PCP Physician Assistant Medical
DX: R10.9 Unspecified abdominal pain (principal)
CPT/HCPCS: 36415; 71046; 80048; 80076; 83690; 83880; 84484; 85025; 85379; 86140; 93005; 94761; 96374; 96375; 99284; 99285; A9270; J1885; J2270

== ENCOUNTER 2022-08-17 19:22 | Emergency (ER) | payer BC, SELFPAY ==
[2022-08-17] VITALS (7 sets, daily range): BP systolic 110–156; BP diastolic 77–87; PULSE 96–105; RESP 18; TEMP 36.8; O2SAT 94–99; BMI 40.7
--- NOTE | 2022-08-17 19:58 | CRLHL7_ITS ---
For Patients: As a result of the Cures Act, medical imaging exams and procedure reports are released immediately into your electronic medical record. You may view this report before your referring provider. If you have questions, please contact your health care provider. INDICATION: Abdominal pain TECHNIQUE: CT Abdomen and pelvis with i.v. contrast. Coronal and sagittal reformats were obtained. CONTRAST: 100 mL Isovue 370 COMPARISON: 04/08/2022 FINDINGS: Lower chest: There is a 3 mm nodule present within the medial right middle lobe and anterior left lower lobe without interval change. Liver: Unremarkable. Spleen: Unremarkable. Pancreas: Unremarkable. Gallbladder: Previous cholecystectomy noted with no significant intra- or extrahepatic biliary ductal dilatation seen. Kidney: Unremarkable. No kidney or ureteral stones or obstruction seen. Adrenal: Unremarkable. Bowel: Previous antegastric-antecolic gastric bypass noted with no definite obstruction of the biliopancreatic limb or David-en-Y loop seen. Previous appendectomy noted with no significant appendiceal stump identified. Vascular: Unremarkable. Lymph: Unremarkable. Peritoneum: Unremarkable. No pneumoperitoneum is seen. No significant ascites is noted. Pelvis: The patient is status post hysterectomy. Soft tissue: Unremarkable. Bone: Unremarkable for age. IMPRESSION: 1. No CT correlate for the patient`s symptoms seen. Dictated by Jay Mcgovern MD @ 08/17/2022 8:30:51 PM Please note that all CT scans at this facility use dose modulation, iterative reconstruction, and/or weight-based dosing when appropriate to reduce radiation dose to as low as reasonably achievable. Dictated by: Jay Mcgovern MD @ 08/17/2022 20:31:36 (Electronically Signed)
--- NOTE | 2022-08-17 20:03 | ED.ABDPAIN ---
HPI - Abdominal Pain General Chief Complaint: Abdominal Pain Stated Complaint: Possible pancreatitis Time Seen by Provider: 08/17/22 19:54 History of Present Illness HPI narrative: Patient is a 46-year-old woman with history of pancreatitis approximately 4 months ago who presents with epigastric pain radiating through to her back. She began having symptoms earlier today after having [employer] for lunch. Patient is had nausea but no vomiting. She has had no change in her bowel. She has had no fevers no chills no night sweats. Patient does not regularly drink alcohol and is status post cholecystectomy. She has had a previous gastric bypass surgery. Patient states that her pain is 10/10. He is passing gas without any difficulty. She has had no blood in her stool and is otherwise been in good health leading up to today's [place]. No recent travel no recent sick contacts. No chest pain or shortness of breath. Related Data Home Medications Medication Instructions Recorded Confirmed estradiol 2 mg tablet 2 mg PO DAILY 01/25/22 08/17/22 multivitamin 1 tab PO QAM 01/25/22 08/17/22 omeprazole 20 mg capsule,delayed 20 mg PO BID 01/25/22 08/17/22 release tramadol 50 mg tablet 50 mg PO Q12H PRN 01/25/22 08/17/22 varenicline 1 mg tablet 1 mg PO BID 01/25/22 08/17/22 cholecalciferol (vitamin D3) 125 125 mcg PO DAILY 04/08/22 08/17/22 mcg (5,000 unit) capsule cyclobenzaprine 10 mg tablet 10 mg PO TID PRN 04/08/22 08/17/22 metformin 500 mg tablet 500 mg PO BIDWM 04/08/22 08/17/22 sertraline 100 mg tablet 150 mg PO DAILY 04/08/22 08/17/22 doxycycline hyclate 100 mg tablet mg 06/21/22 ergocalciferol (vitamin D2) 1,250 1,250 mcg PO QWEEK 06/21/22 08/17/22 mcg (50,000 unit) capsule Allergies Allergy/AdvReac Type Severity Reaction Status Date / Time cefaclor Allergy Verified 08/17/22 19:35 Penicillins Allergy Verified 08/17/22 19:35 Sulfa (Sulfonamide Allergy Anaphylaxis Verified 08/17/22 19:35 Antibiotics) yellow dye Allergy Verified 08/17/22 19:35 Review of Systems Status of ROS Reports: 10 or more systems reviewed and unremarkable except as noted in History and below PFSH [facility] Medical History (Updated 08/17/22 @ 21:06 by Aníbal Garcia MD) Depression ?F32.A - Depression, unspecified (ICD-10) Fatty liver ?K76.0 - Fatty (change of) liver, not elsewhere classified (ICD-10) GERD (gastroesophageal reflux disease) ?K21.9 - Gastro-esophageal reflux disease without esophagitis (ICD-10) Hyperlipidemia ?E78.5 - Hyperlipidemia, unspecified (ICD-10) Hypertension ?I10 - Essential (primary) hypertension (ICD-10) KARI on CPAP ?G47.33 - Obstructive sleep apnea (adult) (pediatric) (ICD-10) ?Z99.89 - Dependence on other enabling machines and devices (ICD-10) Ovary, torsion ?N83.519 - Torsion of ovary and ovarian pedicle, unspecified side (ICD-10) Sleep apnea ?G47.30 - Sleep apnea, unspecified (ICD-10) Surgical History (Updated 08/17/22 @ 20:14 by Donnell Kulkarni RN) H/O gastric bypass ?Z98.84 - Bariatric surgery status (ICD-10) History of appendectomy ?Z90.49 - Acquired absence of other specified parts of digestive tract (ICD-10) History of arthroscopy of shoulder ?Z98.890 - Other specified postprocedural states (ICD-10) History of carpal tunnel release of both wrists ?Z98.890 - Other specified postprocedural states (ICD-10) History of cholecystectomy ?Z90.49 - Acquired absence of other specified parts of digestive tract (ICD-10) History of cystoscopy ?Z98.890 - Other specified postprocedural states (ICD-10) History of esophagogastroduodenoscopy (EGD) ?Z98.890 - Other specified postprocedural states (ICD-10) History of hysterectomy ?Z90.710 - Acquired absence of both cervix and uterus (ICD-10) History of removal of both ovaries ?Z90.722 - Acquired absence of ovaries, bilateral (ICD-10) History of removal of cyst ?Z98.890 - Other specified postprocedural states (ICD-10) Status post arthroscopy of right shoulder (04/11/19) ?Z98.890 - Other specified postprocedural states (ICD-10) Social History Highest level of school completed/degree received: Associate degree: occupational, technical, vocational program Smoking Status: Former smoker What tobacco products do you use: cigarettes Smoking quit date/years: >15 years ago Do you use any of these nicotine containing products: None Second hand tobacco smoke exposure: No How often do you have a drink containing alcohol: never AUDIT-C Alcohol total score: 0 Non-prescribed substance use: denies use Caffeine: No service: No Exam Narrative: Exam Narrative: EXAM GENERAL: Patient appears comfortable and well. EYES: No scleral icterus. LYMPH: No supraclavicular or cervical lymphadenopathy. SKIN: Visible skin seen during exam normal or with benign process only. EXT: No dependent lower extremity pedal edema. HEART: Regular rate and rhythm with no murmurs, rubs, or gallops. LUNGS: Clear to auscultation bilaterally with no crackles or wheezes. ABD: Soft, hypoactive bowel sounds no rebound masses or guarding. PSYCH: Good eye contact, speech is not pressured. Const: Vital Signs, click to edit/add: Vital Signs - 24 hr 08/17/22 19:31 08/17/22 20:28 Temperature 98.2 F Pulse Rate [Right Pulse Oximeter] 105 H 98 Respiratory Rate 18 18 Blood Pressure [Ri ght Upper Arm] 156/87 H 126/83 Pulse Oximetry 99 96 Oxygen Delivery Me thod Room Air Room Air Course Course Hospital Course: Patient seen examined. IV was established normal saline bolus 1 L given. 4 mg of Zofran 30 mg of Toradol given IV CBC CMP amylase lipase troponin CT of the abdomen pelvis ordered. Reevaluation(s) Reevaluation #1: Pt feeling mildly improved. Time: 21:04 Vital Signs Vital signs: Initial Vital Signs Temperature 98.2 F 08/17/22 19:31 Temperature Source Temporal Artery Scan 08/17/22 19:31 Pulse Rate 105 H 08/17/22 19:31 Respiratory Rate 18 08/17/22 19:31 Blood Pressure 156/87 H 08/17/22 19:31 Blood Pressure Mean 110 H 08/17/22 19:31 Blood Pressure Position Sitting 08/17/22 19:31 Pulse Oximetry 99 08/17/22 19:31 Oxygen Delivery Method Room Air 08/17/22 19:31 Vital Signs Temperature 98.2 F 08/17/22 19:31 Pulse Rate 105 H 08/17/22 19:31 Respiratory Rate 18 08/17/22 19:31 Blood Pressure 156/87 H 08/17/22 19:31 Pulse Oximetry 99 08/17/22 19:31 Oxygen Delivery Method Room Air 08/17/22 19:31 Temperature 98.2 F 08/17/22 19:31 Pulse Rate 98 08/17/22 20:28 Respiratory Rate 18 08/17/22 20:28 Blood Pressure 126/83 08/17/22 20:28 Pulse Oximetry 96 08/17/22 20:28 Oxygen Delivery Method Room Air 08/17/22 20:28 MDM - Abdominal Pain MDM Narrative Medical decision making narrative: Patient is a 46-year-old woman with complex abdominal history as outlined in her past medical history of presents with abdominal pain 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 Patient has a history of pancreatitis we did evaluate her for pancreatitis however her amylase and lipase are largely unremarkable. CT of the abdomen pelvis are unremarkable. Troponin electrolytes are normal. She does have a mildly elevated white blood cell count with normal UA. No other concerns were noted on evaluation. I did give her a L of normal saline 30 mg of Toradol and 4 mg of IV Zofran. She is feeling better. At this time as she is status post gastric bypass I did recommend follow-up with GI she does have an appointment she has had many these episodes. I would recommend consideration for EGD. Patient is ready on b.i.d. proton pump inhibitor. I did recommend a bland diet advancing slowly. He will follow-up with her primary physician as well. Lab Data Labs: Lab Results 08/17/22 Range/Units 20:15 WBC 15.15 H (4.50-11.00) K/uL RBC 5.07 (4.00-5.20) m/uL Hgb 14.3 (12.0-16.0) gm/dL Hct 45.9 (33.0-51.0) % MCV 91 (80-100) fL MCH 28 (26-34) pg MCHC 31 L (32-36) gm/dL RDW Coeff of Monica 13.3 (11.5-15.5) % Plt Count 371 (140-440) K/uL Neut % (Auto) 77.2 H (42.0-72.0) % Lymph % (Auto) 15.0 L (20-44) % Chaves % (Auto) 6.3 (0.0-11.0) % Eos % (Auto) 1.1 (0.0-7.0) % Baso % (Auto) 0.3 (0.0-3.0) % Neut # (Auto) 11.70 H (1.7-7.0) K/uL Lymph # (Auto) 2.30 (0.90-2.90) K/uL Chaves # (Auto) 1.00 H (0.00-0.90) K/UL Eos # (Auto) 0.20 (0.00-0.50) K/uL Baso # (Auto) 0.00 (0.00-0.30) K/uL Sodium 140 (135-149) mmol/L Potassium 4.0 (3.6-5.1) mmol/L Chloride 106 (96-114) mmol/L Carbon Dioxide 25 (20-32) mmol/L BUN 11 (5-24) mg/dL Creatinine 0.7 (0.5-1.5) mg/dL Estimated Creat Clear 84.84 Estimated GFR 109 ml/min Glucose 110 (60-115) mg/dL Calcium 8.5 (8.4-10.6) mg/dL Total Bilirubin 0.2 (0.1-1.5) mg/dL AST 30 (12-35) U/L ALT 21 (4-35) U/L Alkaline Phosphatase 94 (40-150) U/L Troponin I < 0.01 L (0.01-0.04) ng/mL Total Protein 7.6 (6.0-8.3) g/dL Albumin 4.4 (3.3-5.0) g/dL Amylase 103 H (18-89) U/L Lipase 128 (23-300) U/L Urine Color Yellow (Yellow) Urine Appearance Clear (Clear) Urine pH 5.5 (5.0-8.5) Ur Specific [place] >= 1.030 (1.000-1.030) Urine Protein Negative (Negative) Urine Glucose (UA) Negative (Negative) Urine Ketones Negative (Negative) Urine Blood Negative (Negative) Urine Nitrite Negative (Negative) Urine Bilirubin Negative (Negative) Urine Urobilinogen 0.2 (0.2-1.0) Ur Leukocyte Esterase Negative (Negative) Discharge Plan Discharge Clinical Impression: Abdominal pain Patient Disposition: Home, Self-Care Condition: Stable Instructions: Abdominal Pain (ED) Additional Instructions: Gray diet Continue current medications Follow-up with gastroenterology. Activity Level: No Restrictions Discharge Diet: Regular Prescriptions: No Action varenicline 1 mg tablet 1 mg PO BID estradiol 2 mg tablet 2 mg PO DAILY omeprazole 20 mg capsule,delayed release(DR/EC) 20 mg PO BID tramadol 50 mg tablet 50 mg PO Q12H PRN multivitamin Tablet 1 tab PO QAM ergocalciferol (vitamin D2) 1,250 mcg (50,000 unit) capsule 1,250 mcg PO QWEEK Patient Comments: TAKE 1 CAPSULE BY MOUTH 1 TIME WEEKLY FOR 52 DOSES doxycycline hyclate 100 mg tablet sertraline 100 mg tablet 150 mg PO DAILY cholecalciferol (vitamin D3) 125 mcg (5,000 unit) capsule 125 mcg PO DAILY metformin 500 mg tablet 500 mg PO BIDWM cyclobenzaprine 10 mg tablet 10 mg PO TID PRN Follow Up/Referrals: Marianela Ruby PA-C [Primary Care Provider] - Stand Alone Forms: MyHealth Info Instructions
[2022-08-17] MEDS: 0.9 % SODIUM CHLORIDE 1000 ml 1,000 ML IV (20:10)
[2022-08-17] MEDS: ONDANSETRON 2 MG/ML inj 4 MG IVP (20:11)
[2022-08-17] MEDS: KETOROLAC 30 MG/ML inj IVP (20:11)
[2022-08-17 20:20] LABS: Basophils Percent Auto 0.3 % (0.0-3.0); Eosinophils Percent Auto 1.1 % (0.0-7.0); Hematocrit 45.9 % (33.0-51.0); Hemoglobin* 14.3 gm/dL (12.0-16.0); Immature Granulocytes Pct Auto 0.1 %; Mean Corpuscular HGB Conc 31 gm/dL (32-36); Mean Corpuscular Hemoglobin 28 pg (26-34); Mean Corpuscular Volume 91 fL (80-100); Monocytes Percent Auto 6.3 % (0.0-11.0); Neutrophils Percent Auto 77.2 % (42.0-72.0); Platelet Count* 371 K/uL (140-440); RDW Coefficient of Variation % 13.3 % (11.5-15.5); Red Blood Count 5.07 m/uL (4.00-5.20); White Blood Count* 15.15 K/uL (4.50-11.00)
[2022-08-17 20:21] LABS: Appearance Urine Clear (Clear); Bilirubin Urine Negative (Negative); Blood Urine Negative (Negative); Color Urine Yellow (Yellow); Glucose Urine Negative (Negative); Ketones Urine Negative (Negative); Leukocyte Esterase Urine Negative (Negative); Nitrite Urine Negative (Negative); Protein Urine Negative (Negative); Specific Gravity Urine >= 1.030 (1.000-1.030); Urobilinogen Urine 0.2 (0.2-1.0); pH Urine 5.5 (5.0-8.5)
[2022-08-17 20:26] LABS: Slide Review Reflex No
[2022-08-17 20:41] LABS: Albumin* 4.4 g/dL (3.3-5.0); Chloride* 106 mmol/L (96-114)
[2022-08-17 20:42] LABS: Sodium* 140 mmol/L (135-149)
[2022-08-17 20:44] LABS: Amylase* 103 U/L (18-89); Bilirubin Total* 0.2 mg/dL (0.1-1.5); Carbon Dioxide* 25 mmol/L (20-32); Creatinine* 0.7 mg/dL (0.5-1.5); Est. Creatinine Clearance* 84.84; Estimated Glomerular Filt Rate 109 ml/min; Total Protein* 7.6 g/dL (6.0-8.3)
[2022-08-17 20:45] LABS: Alanine Aminotransferase* 21 U/L (4-35); Alkaline Phosphatase* 94 U/L (40-150); Aspartate Amino Transferase* 30 U/L (12-35); Blood Urea Nitrogen* 11 mg/dL (5-24); Calcium* 8.5 mg/dL (8.4-10.6); Glucose* 110 mg/dL (60-115); Lipase* 128 U/L (23-300)
[2022-08-17 20:58] LABS: Troponin I* < 0.01 ng/mL (0.01-0.04)
== END 2022-08-17 21:24 | disposition home or self-care (01) ==
PROVIDERS: Emergency Provider Internal Medicine; PCP Physician Assistant Medical
DX: R10.9 Unspecified abdominal pain (principal)
CPT/HCPCS: 36415; 74177; 80053; 81003; 82150; 83690; 84484; 85025; 96361; 96374; 96375; 99283; 99284; 99285; J1885; J2405; J7030; Q9967

== ENCOUNTER 2022-11-02 15:31 | Outpatient (CLI) | payer BC, SELFPAY ==
--- NOTE | 2022-11-02 16:00 | CRLHL7_ITS ---
For Patients: As a result of the Century Cures Act, medical imaging exams and procedure reports are released immediately into your electronic medical record. You may view this report before your referring provider. If you have questions, please contact your health care provider. INDICATION: Peritonsillar abscess TECHNIQUE: CT of the neck with 115 ml iodinated contrast agent. Coronal and sagittal reconstructions are included. COMPARISON: CT sinus 09/15/2022 FINDINGS: There is no mass or other lesion within the soft tissues of the suprahyoid or infrahyoid neck. No cervical lymphadenopathy. The oral cavity, nasopharyngeal, oropharyngeal and hypopharyngeal mucosal spaces are normal. The supraglottic, glottic and infraglottic larynx are unremarkable. The airway including the trachea is normal and is patent. The parotid glands, submandibular and sublingual glands are normal in appearance. The thyroid gland is normal in appearance. The vascular structures opacify normally with contrast material. Scattered mild cervical spondylosis without significant neural foraminal stenosis. No suspicious lytic or blastic osseous lesions. Mild mucosal thickening in the left maxillary sinus. Rightward deviation of the nasal septum. Visualized orbital and intracranial contents are unremarkable. Supraclavicular regions, mediastinum and soft tissues of the imaged chest wall are unremarkable. Scattered patchy opacities in the right upper lobe concerning for infectious or inflammatory process. IMPRESSION: 1. No suspicious enhancement or neck mass. Mild prominence and enhancement of the bilateral palatine tonsils may represent acute tonsillitis. No tonsillar or peritonsillar abscess. 2. No cervical lymphadenopathy. 3. Scattered patchy opacities in the right upper lobe concerning for infectious or inflammatory process. Please note that all CT scans at this facility use dose modulation, iterative reconstruction, and/or weight-based dosing when appropriate to reduce radiation dose to as low as reasonably achievable. Dictated by Deshawn Helm MD @ 11/03/2022 10:56:56 AM (Electronically Signed)
== END 2022-11-02 15:32 | disposition home or self-care (01) ==
LOC: CT 15:32
PROVIDERS: PCP Physician Assistant Medical; Visit Provider Otolaryngology
DX: J36 Peritonsillar abscess (principal)
CPT/HCPCS: 70491; Q9967

== ENCOUNTER 2023-01-13 09:45 | Day surgery (SDC) | payer BC, SELFPAY ==
[2023-01-13] VITALS (17 sets, daily range): BP systolic 120–163; BP diastolic 67–128; PULSE 80–105; RESP 12–114; TEMP 36.3–36.9; O2SAT 93–100; BMI 41.0
[2023-01-13] MEDS: OXYMETAZOLINE 0.05% NASAL SPRAY 2 SPRAY NOSTRIL-B (09:34)
[2023-01-13] MEDS: LACTATED RINGERS 1000 ML 1,000 ML 100 ML IV (09:55)
--- NOTE | 2023-01-13 10:34 | W.ANESCHARGE ---
Anesthesia Charges Start Date/Time Anesthesia Start Date: 01/13/23 Anesthesia Start Time: 10:55 Stop Date/Time Anesthesia Stop Date: 01/13/23 Anesthesia Stop Time: 12:08
[2023-01-13] MEDS: COCAINE HCL 4 % 4 ML SOLUTION NOSTRIL-B (11:40)
[2023-01-13] MEDS: MUPIROCIN 1 GM PACKET 1 APPLIC TOPICAL (11:50)
[2023-01-13] MEDS: AYR SALINE NASAL GEL 1 APPLIC NOSTRIL-B (11:50)
[2023-01-13] MEDS: BUPIVACAINE 0.5 %/EPI 1:200K 30 ML INJECTION (12:00)
[2023-01-13] MEDS: LACTATED RINGERS 1000 ML 1,000 ML 35 ML IV (12:03)
--- NOTE | 2023-01-13 12:10 | W.PM.ENTPROC ---
Procedure Note Date of procedure: 01/13/23 Procedure: Preoperative diagnosis chronic tonsillitis, adenotonsillar hypertrophy, upper airway obstruction, nasal obstruction, left middle turbinate hypertrophy, mucosal thickening floor of left maxillary antrum Postoperative diagnosis same Procedure adenotonsillectomy , endoscopic left maxillary antrostomy with tissue removal, Under general endotracheal anesthesia the patient was prepped and draped in usual fashion. The McIvor mouth gag was inserted the tongue retracted forward. No submucous cleft was noted on inspection or palpation. The right and left tonsils were removed with a combination of needlepoint cautery, bipolar cautery and suction cautery. Meticulous hemostasis was achieved. The adenoid pad was visualized with a laryngeal mirror and removed with suction cautery. The patient was extubated in the operating room taken recovery in satisfactory condition. The nose was injected and decongested the image guidance system utilized. I was able to enter the sinus with a curved suction and identify the location of the mucosal thickening. An up-biting ethmoid forceps was used to remove a portion of this for biopsy purposes. Prior to this the left middle turbinate was crushed with the Lencho forceps. A conservative submucous resection was performed of left inferior turbinate more posteriorly where was swollen. This was done by incising with a 15 blade and taking some tissue submucosally with a Prachi forceps and cauterized with the Coblation Wand. Very tiny amount of tissue was removed. Merocel packing was placed in each side of the nose. Blood loss was less than 10 mL. Surgeon: Rafat Stockton MD
[2023-01-13] MEDS: fentaNYL 100 MCG/2 ML inj 50 MCG IVP ×4 (12:13→12:34)
[2023-01-13] MEDS: MEPERIDINE 25 MG/ML INJ 12.5 MG IVP (12:23)
[2023-01-13] MEDS: HYDROmorphone 0.5 mg/0.5 ml inj IVP (12:36)
[2023-01-13] MEDS: ACETAMINOPHEN INJ 1,000 MG/100 ML VIAL 400 MG IVPB (12:50)
[2023-01-13] MEDS: OXYCODONE 1 MG/ML ORAL SOLN 5 MG PO (13:17)
--- NOTE | 2023-01-14 12:50 | W.ANESCHARGE ---
Anesthesia Charges Start Date/Time Anesthesia Start Date: 01/13/23 Anesthesia Start Time: 10:55 Stop Date/Time Anesthesia Stop Date: 01/13/23 Anesthesia Stop Time: 12:08
== END 2023-01-13 14:00 | disposition home or self-care (01) ==
LOC: OR 09:45
PROVIDERS: PCP Physician Assistant Medical; Visit Provider Otolaryngology
PROC: (CPT 31231; principal; 2023-01-13 11:00)
PROC: (CPT 42821; 2023-01-13 11:00)
DX: J35.01 Chronic tonsillitis (principal); J34.3 Hypertrophy of nasal turbinates; J35.3 Hypertrophy of tonsils with hypertrophy of adenoids; J34.89 Other specified disorders of nose and nasal sinuses
CPT/HCPCS: 42821; 31267; 00160; 88304; 88305; A9270; J0131; J0330; J1100; J1170; J2175; J2405; J2704; J3010; J3490; J7120

== ENCOUNTER 2023-01-14 11:57 | Observation (INO) | payer BC, SELFPAY ==
[2023-01-14] VITALS (29 sets, daily range): BP systolic 128–145; BP diastolic 71–90; PULSE 86–104; RESP 16–18; TEMP 36.7–37.8; O2SAT 90–96; BMI 40.7; BMI 41.0
--- NOTE | 2023-01-14 12:28 | ED_ITS ---
HPI - General Adult General Time Seen by Provider: 12:28 Date Seen: 01/14/23 Chief complaint: Ear/Nose/Throat Problem Stated complaint: Pain post surg, difficulty speaking Time Seen by Provider: 01/14/23 12:10 Source: patient and RN notes reviewed Mode of arrival: ambulatory Limitations: no limitations History of Present Illness HPI narrative: This 47-year-old female is coming into the ER with inability to swallow and having significant pain after having adenotonsillectomy, endoscopic left maxillary sinus antrostomy with tissue removal yesterday here at [facility] with Dr. Stockton. She really has not been able to take in any orals. They try to increase her oral oxycodone liquid at home to 10 mg and is not helping. She is having increasing pain, do hurts too much to even swallow that she is not managing her secretions. She has maybe had a little cough. No vomiting, is not really feeling nauseated. She is tolerating the oxycodone is just not helping. She has not been able to take any Tylenol in due to pain. She is having pain to the point of not really being able to talk. Her is providing some of the history. If she does talk it is very faint and is seemingly quite painful for her. Related Data Home Medications Medication Instructions Recorded Confirmed estradiol 2 mg tablet 2 mg PO DAILY 01/25/22 01/14/23 tramadol 50 mg tablet 50 mg PO BID PRN 01/25/22 01/14/23 varenicline 1 mg tablet 1 mg PO BID 01/25/22 01/14/23 cholecalciferol (vitamin D3) 125 125 mcg PO DAILY 04/08/22 01/14/23 mcg (5,000 unit) capsule cyclobenzaprine 10 mg tablet 10 mg PO HS PRN 04/08/22 01/14/23 metformin 500 mg tablet 500 mg PO BIDWM 04/08/22 01/14/23 sertraline 100 mg tablet 150 mg PO DAILY 04/08/22 01/14/23 ergocalciferol (vitamin D2) 1,250 1,250 mcg PO QWEEK 06/21/22 01/14/23 mcg (50,000 unit) capsule omeprazole 40 mg capsule,delayed 40 mg PO DAILY 01/14/23 01/14/23 release ondansetron 4 mg disintegrating 4 mg PO Q8H PRN nausea 01/14/23 01/14/23 tablet Previous Rx's Medication Instructions Recorded doxycycline hyclate 100 mg capsule 100 mg PO BID #20 caps 12/01/22 oxycodone 5 mg/5 mL oral solution 5 mg (5 mL) PO Q4-6H PRN pain #200 01/13/23 mL Allergies Allergy/AdvReac Type Severity Reaction Status Date / Time cefaclor Allergy Verified 01/14/23 12:03 Penicillins Allergy Verified 01/14/23 12:03 Sulfa (Sulfonamide Allergy Anaphylaxis Verified 01/14/23 12:03 Antibiotics) yellow dye Allergy Verified 01/14/23 12:03 NSAIDS (Non-Steroidal AdvReac Verified 01/14/23 12:03 Anti-Inflamma Review of Systems Status of ROS: Reports: 6 or more systems reviewed and unremarkable except as noted in History and below [facility] Medical History KARI on CPAP ?G47.33 - Obstructive sleep apnea (adult) (pediatric) (ICD-10) ?Z99.89 - Dependence on other enabling machines and devices (ICD-10) Hyperlipidemia ?E78.5 - Hyperlipidemia, unspecified (ICD-10) Fatty liver ?K76.0 - Fatty (change of) liver, not elsewhere classified (ICD-10) Ovary, torsion ?N83.519 - Torsion of ovary and ovarian pedicle, unspecified side (ICD-10) Hypertension ?I10 - Essential (primary) hypertension (ICD-10) Depression ?F32.A - Depression, unspecified (ICD-10) GERD (gastroesophageal reflux disease) ?K21.9 - Gastro-esophageal reflux disease without esophagitis (ICD-10) Sleep apnea ?G47.30 - Sleep apnea, unspecified (ICD-10) Surgical History History of esophagogastroduodenoscopy (EGD) ?Z98.890 - Other specified postprocedural states (ICD-10) History of cystoscopy ?Z98.890 - Other specified postprocedural states (ICD-10) History of removal of cyst ?Z98.890 - Other specified postprocedural states (ICD-10) History of arthroscopy of shoulder ?Z98.890 - Other specified postprocedural states (ICD-10) History of carpal tunnel release of both wrists ?Z98.890 - Other specified postprocedural states (ICD-10) History of hysterectomy ?Z90.710 - Acquired absence of both cervix and uterus (ICD-10) History of removal of both ovaries ?Z90.722 - Acquired absence of ovaries, bilateral (ICD-10) History of cholecystectomy ?Z90.49 - Acquired absence of other specified parts of digestive tract (ICD- 10) History of appendectomy ?Z90.49 - Acquired absence of other specified parts of digestive tract (ICD- 10) H/O gastric bypass ?Z98.84 - Bariatric surgery status (ICD-10) Status post arthroscopy of right shoulder (04/11/19) ?Z98.890 - Other specified postprocedural states (ICD-10) Social History Highest level of school completed/degree received: Associate degree: occupational, technical, vocational program Smoking Status: Former smoker What tobacco products do you use: cigarettes Smoking quit date/years: >15 years ago Do you use any of these nicotine containing products: None Second hand tobacco smoke exposure: No How often do you have a drink containing alcohol: never AUDIT-C Alcohol total score: 0 Non-prescribed substance use: denies use Caffeine: No service: No Exam Const: Vital Signs, click to edit/add: Vital Signs - 24 hr 01/14/23 12:11 01/14/23 13:25 01/14/23 13:30 Temperature 100.0 F H Pulse Rate 93 93 Pulse Rate [Pulse Oximeter] 104 H Respiratory Rate 16 Blood Pressure Blood Pressure [Ri ght Upper Arm] 144/90 H Pulse Oximetry 96 90 92 Oxygen Delivery Me thod Room Air 01/14/23 13:35 01/14/23 13:36 01/14/23 13:45 Temperature Pulse Rate 93 91 93 Pulse Rate [Pulse Oximeter] Respiratory Rate Blood Pressure Blood Pressure [Ri ght Upper Arm] Pulse Oximetry 94 90 93 Oxygen Delivery Me thod 01/14/23 14:00 01/14/23 14:04 01/14/23 14:15 Temperature Pulse Rate 94 91 97 Pulse Rate [Pulse Oximeter] Respiratory Rate Blood Pressure 132/73 Blood Pressure [Ri ght Upper Arm] Pulse Oximetry 95 91 95 Oxygen Delivery Me thod 01/14/23 14:30 01/14/23 14:31 01/14/23 14:45 Temperature Pulse Rate 100 91 89 Pulse Rate [Pulse Oximeter] Respiratory Rate Blood Pressure 130/72 Blood Pressure [Ri ght Upper Arm] Pulse Oximetry 93 96 93 Oxygen Delivery Md thod 01/14/23 15:00 01/14/23 15:01 01/14/23 15:15 Temperature Pulse Rate 89 90 90 Pulse Rate [Pulse Oximeter] Respiratory Rate Blood Pressure 128/74 Blood Pressure [Ri ght Upper Arm] Pulse Oximetry 93 93 92 Oxygen Delivery Md thod 01/14/23 15:30 01/14/23 15:31 01/14/23 15:45 Temperature Pulse Rate 93 89 88 Pulse Rate [Pulse Oximeter] Respiratory Rate Blood Pressure 140/83 H Blood Pressure [Ri ght Upper Arm] Pulse Oximetry 90 94 92 Oxygen Delivery Md thod 47-year-old female is alert interactive, no stridor noted, do see her spitting out saliva at times. When she does talk her speech is very faint, looks uncomfortable for her. She has gauze is underneath her nose. Pupils equal round, sclera clear, conjugate gaze. TMs canals are normal. Oropharynx shows a normal tongue, she has got the wet as scars over the tonsillar bases left looks to be more prominent than the right. Still has an oral airway. Mucosa does look hydrated. Neck is supple, no palpable masses, no adenopathy. Lungs are clear with good air entry, no wheezing or crackles. CV slightly fast but regular, no murmur, normal S1 and S2. Abdomen is soft, no rebound or guarding, nontender, nondistended. Documenting provider has reviewed patient's vital signs: yes Course Course ED Course: This patient obviously needs some IV support and pain management. Plan is to initiate a L of fluids, likely give a 2nd 1, get some baseline labs, check portable chest x-ray just to ensure no early pneumonia from aspiration potentially. Will give her pain management. They states she got fentanyl after her surgery yesterday and did tolerate it but did not work. Dilaudid did work much better. We will give her 0.5 mg IV Dilaudid, have her on pulse oximetry. Will premedicate with Zofran. I will order IV dose of Tylenol as well as she cannot take orals right now. Will see if she has good response to this initial management otherwise might have to consider hospitalization. Reevaluation(s) Time of Reevaluation #1: 15:20 Reevaluation #1: Patient still is not able to swallow her secretions, still has mild headache. Unfortunately I just realized that I have got order her IV Tylenol which I will subsequently do. I did apologize. She is on her 2 L of IV fluids. Her labs are stable, no evidence of any abnormality in her chest x-ray but due to pain, is unable to take orals. Had reviewed this earlier briefly with her ENT surgeon Dr. Stockton whom thought she might admission for supportive care. I will talk to the hospitalist regarding her. Consultations Consultation #1: Did speak with hospitalist Dr. Roldan. He accepts cares of this patient. Vital Signs Vital signs: Initial Vital Signs Temperature 100.0 F H 01/14/23 12:11 Temperature Source Temporal Artery Scan 01/14/23 12:11 Pulse Rate 104 H 01/14/23 12:11 Pulse Rhythm Regular 01/14/23 12:11 Respiratory Rate 16 01/14/23 12:11 Blood Pressure 144/90 H 01/14/23 12:11 Blood Pressure Mean 108 H 01/14/23 12:11 Blood Pressure Position Sitting 01/14/23 12:11 Pulse Oximetry 96 01/14/23 12:11 Oxygen Delivery Method Room Air 01/14/23 12:11 Vital Signs Temperature 100.0 F H 01/14/23 12:11 Pulse Rate 104 H 01/14/23 12:11 Respiratory Rate 16 01/14/23 12:11 Blood Pressure 144/90 H 01/14/23 12:11 Pulse Oximetry 96 01/14/23 12:11 Oxygen Delivery Method Room Air 01/14/23 12:11 Temperature 100.0 F H 01/14/23 12:11 Pulse Rate 88 01/14/23 15:45 Respiratory Rate 16 01/14/23 12:11 Blood Pressure 140/83 H 01/14/23 15:31 Pulse Oximetry 92 01/14/23 15:45 Oxygen Delivery Method Room Air 01/14/23 12:11 Medical Decision Making Lab Data Lab results reviewed: Yes I reviewed the patient's lab results Labs: Lab Results 01/14/23 Range/Units 12:55 WBC 10.36 (4.50-11.00) K/uL RBC 4.73 (4.00-5.20) m/uL Hgb 13.3 (12.0-16.0) gm/dL Hct 42.3 (33.0-51.0) % MCV 89 (80-100) fL MCH 28 (26-34) pg MCHC 31 L (32-36) gm/dL RDW Coeff of Monica 13.7 (11.5-15.5) % Plt Count 311 (140-440) K/uL Neut % (Auto) 69.8 (42.0-72.0) % Lymph % (Auto) 21.7 (20-44) % [place] % (Auto) 6.9 (0.0-11.0) % Eos % (Auto) 1.2 (0.0-7.0) % Baso % (Auto) 0.3 (0.0-3.0) % Neut # (Auto) 7.23 H (1.7-7.0) K/uL Lymph # (Auto) 2.25 (0.90-2.90) K/uL [place] # (Auto) 0.70 (0.00-0.90) K/UL Eos # (Auto) 0.12 (0.00-0.50) K/uL Baso # (Auto) 0.03 (0.00-0.30) K/uL Abs Immat Gran (auto) 0.01 (0.00-0.30) K/uL Imm/Tot Granulo (auto) 0.1 % Sodium 140 (135-149) mmol/L Potassium 3.6 (3.6-5.1) mmol/L Chloride 103 (96-114) mmol/L Carbon Dioxide 28 (20-32) mmol/L Anion Gap 9 (7-15) mEq/L BUN 8 (5-24) mg/dL Creatinine 0.6 (0.5-1.5) mg/dL Estimated Creat Clear 97.95 Estimated GFR 113 ml/min Glucose 92 (60-115) mg/dL Lactate 0.8 (0.5-1.9) mmol/L Calcium 9.5 (8.4-10.6) mg/dL Imaging Data Chest x-ray: Attestation: I have reviewed the pertinent imaging results. My impression: I see no acute pathology on my preliminary review. Radiologist's impression: Patient: LAVELL GOODMAN Facility:?[facility] Patient ID:?[id number] Site Patient ID:?[id number]. Site :?[id number] Study:?XRay Chest Portable-01/14/2023 12:52:39 PM Ordering Physician:?Akila Fuchs Final Report: INDICATION: Postop fever. COMPARISON: Chest x-ray dated 21 June 2022. FINDINGS: A single portable chest x-ray shows a normal cardiac silhouette. The lungs show no focal pulmonary opacities. Sharp pleural margins. No pne umothorax. IMPRESSION: No evidence of acute pulmonary abnormalities. Dictated by Rj Gary MD @ 01/14/2023 1:59:26 PM Dictated by: Rj Gary MD @ 01/14/2023 13:59:37 (Electronic Signature) Critical Care Time Critical Care Time Critical Care Time: No Discharge Plan Discharge Clinical Impression: Post-operative pain, Post-tonsillectomy pain, S/P adenoidectomy Patient Disposition: Admitted As Observation
--- NOTE | 2023-01-14 12:36 | CRLHL7_ITS ---
For Patients: As a result of the Cures Act, medical imaging exams and procedure reports are released immediately into your electronic medical record. You may view this report before your referring provider. If you have questions, please contact your health care provider. INDICATION: Postop fever. COMPARISON: Chest x-ray dated 21 June 2022. FINDINGS: A single portable chest x-ray shows a normal cardiac silhouette. The lungs show no focal pulmonary opacities. Sharp pleural margins. No pneumothorax. IMPRESSION: No evidence of acute pulmonary abnormalities. Dictated by Rj Gary MD @ 01/14/2023 1:59:26 PM Dictated by: Rj Gary MD @ 01/14/2023 13:59:37 (Electronically Signed)
[2023-01-14] MEDS: 0.9 % SODIUM CHLORIDE 1000 ml 1,000 ML IV ×2 (13:05→14:05)
[2023-01-14 13:08] LABS: Lactate* 0.8 mmol/L (0.5-1.9)
[2023-01-14 13:12] LABS: Basophils Absolute Auto 0.03 K/uL (0.00-0.30); Basophils Percent Auto 0.3 % (0.0-3.0); Eosinophils Absolute Auto 0.12 K/uL (0.00-0.50); Eosinophils Percent Auto 1.2 % (0.0-7.0); Hematocrit 42.3 % (33.0-51.0); Hemoglobin* 13.3 gm/dL (12.0-16.0); Immature Granulocytes Abs Auto 0.01 K/uL (0.00-0.30); Immature Granulocytes Pct Auto 0.1 %; Lymphocytes Absolute Auto 2.25 K/uL (0.90-2.90); Lymphocytes Percent Auto 21.7 % (20-44); Mean Corpuscular HGB Conc 31 gm/dL (32-36); Mean Corpuscular Hemoglobin 28 pg (26-34); Mean Corpuscular Volume 89 fL (80-100); Monocytes Percent Auto 6.9 % (0.0-11.0); Neutrophils Absolute Auto 7.23 K/uL (1.7-7.0); Neutrophils Percent Auto 69.8 % (42.0-72.0); Platelet Count* 311 K/uL (140-440); RDW Coefficient of Variation % 13.7 % (11.5-15.5); Red Blood Count 4.73 m/uL (4.00-5.20); White Blood Count* 10.36 K/uL (4.50-11.00)
[2023-01-14] MEDS: HYDROmorphone 0.5 mg/0.5 ml inj IVP ×4 (13:12→23:24)
[2023-01-14] MEDS: dexAMETHasone 10 MG/ML inj IVP (13:12)
[2023-01-14] MEDS: ONDANSETRON 2 MG/ML inj 4 MG IVP (13:12)
[2023-01-14 13:15] LABS: Slide Review Reflex No
[2023-01-14 13:34] LABS: Chloride* 103 mmol/L (96-114); Potassium* 3.6 mmol/L (3.6-5.1); Sodium* 140 mmol/L (135-149)
[2023-01-14 13:37] LABS: Anion Gap 9 mEq/L (7-15); Blood Urea Nitrogen* 8 mg/dL (5-24); Carbon Dioxide* 28 mmol/L (20-32); Creatinine* 0.6 mg/dL (0.5-1.5); Est. Creatinine Clearance* 97.95; Estimated Glomerular Filt Rate 113 ml/min; Glucose* 92 mg/dL (60-115)
[2023-01-14 13:38] LABS: Calcium* 9.5 mg/dL (8.4-10.6)
--- NOTE | 2023-01-14 14:52 | ED.NURSE ---
per pt request and verbal okay of MD, changed pt dressing on nose. small amount of serious drainage noted on old dressing
[2023-01-14] MEDS: ACETAMINOPHEN INJ 1,000 MG/100 ML VIAL 400 MG IVPB (15:52)
--- NOTE | 2023-01-14 17:04 | P.IMHP_ITS ---
Hospitalist- H&P: HPI History of Present Illness Date Seen: 01/14/23 Chief complaint: Pain post surg, difficulty speaking Narrative: Marylu Ruiz is a 47 year old female with history of chronic tonsillitis, adenotonsillar hypertrophy, upper airway obstruction, nasal obstruction, left middle turbinate hypertrophy, mucosal thickening floor of left maxillary antrum who underwent adenotonsillectomy , endoscopic left maxillary antrostomy with tissue removal on 01/[address] Prince. She is presenting to ED today for evaluation of dizziness and weakness. She has noted posterior oropharynx bleeding. She has had difficulty swallowing and unable to tolerate PO diet. She endorses odynophasia. In the ED the patient had temp of 100F. Notable labs included normal lactate, normal WBC. CXR with no acute findings. In the ED her case was discussed with ENT. SHe was given IVF, decadron, and dilaudid and admitted for further evaluation. cxr No evidence of acute pulmonary abnormalities. Review of Systems Status of ROS: Reports: 10 or more systems reviewed and unremarkable except as noted in History and below [facility] Medical History (Updated 01/14/23 @ 17:07 by Tip Roldan MD) KARI on CPAP ?G47.33 - Obstructive sleep apnea (adult) (pediatric) (ICD-10) ?Z99.89 - Dependence on other enabling machines and devices (ICD-10) Hyperlipidemia ?E78.5 - Hyperlipidemia, unspecified (ICD-10) Fatty liver ?K76.0 - Fatty (change of) liver, not elsewhere classified (ICD-10) Ovary, torsion ?N83.519 - Torsion of ovary and ovarian pedicle, unspecified side (ICD-10) Hypertension ?I10 - Essential (primary) hypertension (ICD-10) Depression ?F32.A - Depression, unspecified (ICD-10) GERD (gastroesophageal reflux disease) ?K21.9 - Gastro-esophageal reflux disease without esophagitis (ICD-10) Sleep apnea ?G47.30 - Sleep apnea, unspecified (ICD-10) Surgical History (Updated 01/14/23 @ 16:48 by Shila Wilburn MD) History of esophagogastroduodenoscopy (EGD) ?Z98.890 - Other specified postprocedural states (ICD-10) History of cystoscopy ?Z98.890 - Other specified postprocedural states (ICD-10) History of removal of cyst ?Z98.890 - Other specified postprocedural states (ICD-10) History of arthroscopy of shoulder ?Z98.890 - Other specified postprocedural states (ICD-10) History of carpal tunnel release of both wrists ?Z98.890 - Other specified postprocedural states (ICD-10) History of hysterectomy ?Z90.710 - Acquired absence of both cervix and uterus (ICD-10) History of removal of both ovaries ?Z90.722 - Acquired absence of ovaries, bilateral (ICD-10) History of cholecystectomy ?Z90.49 - Acquired absence of other specified parts of digestive tract (ICD- 10) History of appendectomy ?Z90.49 - Acquired absence of other specified parts of digestive tract (ICD- 10) H/O gastric bypass ?Z98.84 - Bariatric surgery status (ICD-10) Status post arthroscopy of right shoulder (04/11/19) ?Z98.890 - Other specified postprocedural states (ICD-10) Social History What is your current living situation?: I presently have a place to live Problems where you live: no known problems Problems where you live details: NA In the past 12 months, utilities in danger of being shut off: no In past 12 months, lack of transportation kept you from medical appts, meetings, work, or getting things needed for daily living: no In the past 12 mos, have been you worried that your food would run out before you had money to buy more?: never true In the past 12 mos, the food you bought just didn't last and you didn't have money to buy more?: never true Highest level of school completed/degree received: Associate degree: occupational, technical, vocational program Smoking Status: Never smoker Do you use any of these nicotine containing products: None Second hand tobacco smoke exposure: No How often do you have a drink containing alcohol: never AUDIT-C Alcohol total score: 0 Non-prescribed substance use: denies use Caffeine: No How often does anyone, including family, friends and others, physically hurt you : unable to answer How often does anyone, including family, friends and others, insult or talk down to you: unable to answer How often does anyone, including family, friends and others, threaten you with harm: unable to answer How often does anyone, including family, friends and others, scream or curse at you: unable to answer service: No Meds Home Medications and Allergies Home Medications Medication Instructions Recorded Confirmed Type estradiol 2 mg tablet 2 mg PO DAILY 01/25/22 01/14/23 History tramadol 50 mg tablet 50 mg PO BID PRN 01/25/22 01/14/23 History varenicline 1 mg tablet 1 mg PO BID 01/25/22 01/14/23 History cholecalciferol (vitamin D3) 125 125 mcg PO DAILY 04/08/22 01/14/23 History mcg (5,000 unit) capsule cyclobenzaprine 10 mg tablet 10 mg PO HS PRN 04/08/22 01/14/23 History metformin 500 mg tablet 500 mg PO BIDWM 04/08/22 01/14/23 History sertraline 100 mg tablet 150 mg PO DAILY 04/08/22 01/14/23 History ergocalciferol (vitamin D2) 1,250 1,250 mcg PO QWEEK 06/21/22 01/14/23 History mcg (50,000 unit) capsule omeprazole 40 mg capsule,delayed 40 mg PO DAILY 01/14/23 01/14/23 History release ondansetron 4 mg disintegrating 4 mg PO Q8H PRN nausea 01/14/23 01/14/23 History tablet Allergies Allergy/AdvReac Type Severity Reaction Status Date / Time cefaclor Allergy Verified 01/14/23 12:03 Penicillins Allergy Verified 01/14/23 12:03 Sulfa (Sulfonamide Allergy Anaphylaxis Verified 01/14/23 12:03 Antibiotics) yellow dye Allergy Verified 01/14/23 12:03 NSAIDS (Non-Steroidal AdvReac Verified 01/14/23 12:03 Anti-Inflamma Exam Narrative: Exam Narrative: Gen: no acute distress HEENT: NCAT EOMI mmm Neck: Supple; erythema/edema posterior oropharynx CV: rrr normal s1 s2; Lungs: CTAB Abd: Soft,nt, nd Neuro: Alert, oriented, CN grossly intact; nonfocal screening?exam Psych: appropriate affect MSK: age appropriate muscle mass Skin; Warm, dry no rash on face Const: Vital Signs, click to edit/add: Vital Signs - 24 hr 01/14/23 12:11 01/14/23 13:25 01/14/23 13:30 Temperature 100.0 F H Pulse Rate 93 93 Pulse Rate [Pulse Oximeter] 104 H Respiratory Rate 16 Blood Pressure Blood Pressure [Ri ght Upper Arm] 144/90 H Pulse Oximetry 96 90 92 Oxygen Delivery Me thod Room Air 01/14/23 13:35 01/14/23 13:36 01/14/23 13:45 Temperature Pulse Rate 93 91 93 Pulse Rate [Pulse Oximeter] Respiratory Rate Blood Pressure Blood Pressure [Ri ght Upper Arm] Pulse Oximetry 94 90 93 Oxygen Delivery Me thod 01/14/23 14:00 01/14/23 14:04 01/14/23 14:15 Temperature Pulse Rate 94 91 97 Pulse Rate [Pulse Oximeter] Respiratory Rate Blood Pressure 132/73 Blood Pressure [Ri ght Upper Arm] Pulse Oximetry 95 91 95 Oxygen Delivery Me thod 01/14/23 14:30 01/14/23 14:31 01/14/23 14:45 Temperature Pulse Rate 100 91 89 Pulse Rate [Pulse Oximeter] Respiratory Rate Blood Pressure 130/72 Blood Pressure [Ri ght Upper Arm] Pulse Oximetry 93 96 93 Oxygen Delivery Me thod 01/14/23 15:00 01/14/23 15:01 01/14/23 15:15 Temperature Pulse Rate 89 90 90 Pulse Rate [Pulse Oximeter] Respiratory Rate Blood Pressure 128/74 Blood Pressure [Ri ght Upper Arm] Pulse Oximetry 93 93 92 Oxygen Delivery Me thod 01/14/23 15:30 01/14/23 15:31 01/14/23 15:45 Temperature Pulse Rate 93 89 88 Pulse Rate [Pulse Oximeter] Respiratory Rate Blood Pressure 140/83 H Blood Pressure [Ri ght Upper Arm] Pulse Oximetry 90 94 92 Oxygen Delivery Me thod Hospitalist - H&P: Result Labs Labs: Short CBC 01/14/23 Range/Units 12:55 WBC 10.36 (4.50-11.00) K/uL Hgb 13.3 (12.0-16.0) gm/dL Hct 42.3 (33.0-51.0) % Plt Count 311 (140-440) K/uL BMP 01/14/23 12:55 Sodium 140 Potassium 3.6 Chloride 103 Carbon Dioxide 28 BUN 8 Creatinine 0.6 Glucose 92 Calcium 9.5 Assessment and Plan Assessment and plan (1) S/P adenoidectomy: Status: Acute (2) Post-tonsillectomy pain: Status: Acute (3) KARI on CPAP: Status: Acute Plan Assessment: Marylu Ruiz is a 47 year old female with history of chronic tonsillitis, adenotonsillar hypertrophy, upper airway obstruction, nasal obstruction, left middle turbinate hypertrophy, mucosal thickening floor of left maxillary antrum who underwent adenotonsillectomy , endoscopic left maxillary antrostomy with tissue removal on 01/[address] Prince. She is presenting to ED today for evaluation of dizziness and weakness. She has noted posterior oropharynx bleeding. She has had difficulty swallowing and unable to tolerate PO diet. She endorses odynophasia. In the ED the patient had temp of 100F. Notable labs included normal lactate, normal WBC. CXR with no acute findings. In the ED her case was discussed with ENT. SHe was given IVF, decadron, and dilaudid and admitted for further evaluation. 1. adenotonsillectomy , endoscopic left maxillary antrostomy with tissue removal on 01/[address] Prince presenting with odynophagia and fever Plan -admit to obs -blood cx -doxycyline; patient allergic to cephalosporins/and pcns -continue decadron -pain control -IVF -full liquid diet; adat Code-Full DVT ppx-lovenox
--- NOTE | 2023-01-14 17:05 | ED.NURSE ---
Nurse to nurse report given to MS
[2023-01-14] MEDS: 0.9 % SODIUM CHLORIDE 1000 ml 1,000 ML 100 ML IV (18:15)
[2023-01-14] MEDS: DOXYCYCLINE HYCLATE 100 MG in 0.9 % SODIUM CHLORIDE Mini-bag 100 ML IVPB (18:24)
--- NOTE | 2023-01-14 19:19 | PC.NURSE ---
Nursing Care Hours: [id number] Pt this shift arrived from ED, ambulated to bed with SB assist. C/o some lightheaded and dizziness. C/o pain 10/31, ice pack applied to neck. Scant amount of bleeding when pt spits out saliva. Yellow-yan plaques in back of throat and upper palate. Pt unable to swallow saliva or liquids at this time. Ice chips offered. Pain medication given via IV. VSS, O2 93% RA. Started IV fluids and ABX.
[2023-01-14] MEDS: diphenhydrAMINE 50 MG/ML inj 25 MG IVP (19:34)
[2023-01-14] MEDS: ENOXAPARIN 40 MG/0.4 ML INJ SUBCUT (20:53)
[2023-01-14] MEDS: dexAMETHasone 10 MG/ML inj 6 MG IVP (23:24)
[2023-01-15] MEDS: HYDROmorphone 0.5 mg/0.5 ml inj IVP ×2 (03:55→05:00)
[2023-01-15 04:05] VITALS: BP 152/88; PULSE 85; RESP 16; TEMP 36.7; O2SAT 97
[2023-01-15] MEDS: 0.9 % SODIUM CHLORIDE 1000 ml 1,000 ML 100 ML IV (04:44)
[2023-01-15] MEDS: dexAMETHasone 10 MG/ML inj 6 MG IVP (05:30)
[2023-01-15] MEDS: DOXYCYCLINE HYCLATE 100 MG in 0.9 % SODIUM CHLORIDE Mini-bag 100 ML IVPB (06:05)
[2023-01-15 06:37] LABS: Hematocrit 41.2 % (33.0-51.0); Hemoglobin* 12.9 gm/dL (12.0-16.0); Immature Granulocytes Abs Auto 0.13 K/uL (0.00-0.30); Immature Granulocytes Pct Auto 1.3 %; Mean Corpuscular HGB Conc 31 gm/dL (32-36); Mean Corpuscular Hemoglobin 28 pg (26-34); Mean Corpuscular Volume 90 fL (80-100); Monocytes Percent Auto 3.1 % (0.0-11.0); Neutrophils Percent Auto 88.6 % (42.0-72.0); Platelet Count* 342 K/uL (140-440); RDW Coefficient of Variation % 13.8 % (11.5-15.5); Red Blood Count 4.58 m/uL (4.00-5.20); White Blood Count* 10.26 K/uL (4.50-11.00)
--- NOTE | 2023-01-15 06:43 | PC.NURSE ---
Pt alert and oriented x3. Afebrile. Pt reports 7/10 pain in back of throat, pain managed with PRN medication. Pt?s oropharynx has?black and white scabs from surgery. Per previous shift nurse pt had scant nose bleeding, pt did not have bleeding during writers shift and wore her CPAP throughout most of night.?Pt had some gelatin and water around 0510 and tolerated it well.?Pt denies?chest pain, SOB, lightheadedness and N/V. Pt is up IND in room. Pt slept throughout most of night.?
[2023-01-15 06:45] LABS: Slide Review Reflex No
[2023-01-15 06:54] LABS: Chloride* 105 mmol/L (96-114); Sodium* 141 mmol/L (135-149)
[2023-01-15 06:57] LABS: Anion Gap 8 mEq/L (7-15); Blood Urea Nitrogen* 8 mg/dL (5-24); Calcium* 9.7 mg/dL (8.4-10.6); Carbon Dioxide* 28 mmol/L (20-32); Creatinine* 0.5 mg/dL (0.5-1.5); Est. Creatinine Clearance* 117.54; Estimated Glomerular Filt Rate 118 ml/min; Glucose* 138 mg/dL (60-115)
[2023-01-15 07:00] VITALS: BP 120/70; PULSE 81; RESP 16; O2SAT 99
[2023-01-15] MEDS: ACETAMINOPHEN 160 MG/5 ML CUP 320 MG PO (08:10)
[2023-01-15] MEDS: OXYCODONE 1 MG/ML ORAL SOLN 5 MG PO ×2 (08:25→10:50)
[2023-01-15 11:00] VITALS: BP 127/84; PULSE 74; RESP 16; O2SAT 98
--- NOTE | 2023-01-15 12:44 | PC.NURSE ---
Nursing Care Hours: 1424-1029 Pt this shift calm and cooperative with cares, alert and oriented. C/o pain to throat, treated per eMAR, treatment effective. Able to tolerate full liquid diet. VSS, no c/o dizziness or lightheadedness. IV removed for discharge. Instructions went over with pt and spouse, all questions and concerns addressed. Pt ambulated off the unit in stable condition.
--- NOTE | 2023-01-15 16:56 | PM.DS1 ---
DS: Providers Provider Time Seen by Provider: 10:00 Date Seen: 01/15/23 Date of admission: 01/14/23 17:07 Primary care physician: Marianela Ruby PA-C Admitting Clinician: Tip Roldan MD Attending Physician on discharge: Hardy Carpenter MD Date of Discharge: 01/15/23 DS: Diagnosis Discharge Diagnosis (1) Post-operative pain: Status: Acute (2) Post-tonsillectomy pain: Status: Acute (3) S/P adenoidectomy: Status: Acute (4) KARI on CPAP: Status: Acute DS: Summary Hospital Course Hospital Course: History of present illness: Marylu Ruiz is a 47 year old female with history of chronic tonsillitis, adenotonsillar hypertrophy, upper airway obstruction, nasal obstruction, left middle turbinate hypertrophy, mucosal thickening floor of left maxillary antrum who underwent adenotonsillectomy , endoscopic left maxillary antrostomy with tissue removal on 01/[address] Prince. She is presenting to ED today for evaluation of dizziness and weakness. She has noted posterior oropharynx bleeding. She has had difficulty swallowing and unable to tolerate PO diet. She endorses odynophasia. In the ED the patient had temp of 100F. Notable labs included normal lactate, normal WBC. CXR with no acute findings. In the ED her case was discussed with ENT. SHe was given IVF, decadron, and dilaudid and admitted for further evaluation. Patient condition improved substantially to the course hospitalization and was able to tolerate a home going regimen including eating and drinking and taking her liquid analgesics. Status at Discharge Functional status at discharge: independent ambulation Overall status at discharge: patient is progressing back to baseline Time Spent with Patient Time attestation: Total time spent providing and/or coordinating discharge services: Time spent: Greater than 30 minutes Exam Narrative: Exam Narrative: Gen: no acute distress HEENT: NCAT EOMI mmm postoperative changes in soft palate and posterior pharynx. Neck: Supple; erythema/edema posterior oropharynx CV: rrr normal s1 s2; Lungs: CTAB Abd: Soft,nt, nd Neuro: Alert, oriented, CN grossly intact; nonfocal screening?exam Psych: appropriate affect MSK: age appropriate muscle mass Skin; Warm, dry no rash on face Const: Vital Signs, click to edit/add: Vital Signs - 24 hr 09/23/23 17:00 01/14/23 17:01 01/14/23 17:30 Temperature 98.0 F Pulse Rate 88 88 Pulse Rate [Right Pulse Oximeter] 93 Respiratory Rate 16 Blood Pressure 132/79 Blood Pressure [Ri ght Arm] 137/89 Pulse Oximetry 93 92 93 Oxygen Delivery Me thod Room Air 01/14/23 19:40 01/14/23 23:25 01/15/23 04:05 Temperature 98.0 F 98.1 F 98.1 F Pulse Rate Pulse Rate [Right Pulse Oximeter] 89 86 85 Respiratory Rate 16 18 16 Blood Pressure Blood Pressure [Ri ght Arm] 145/88 H 133/85 152/88 H Pulse Oximetry 95 95 97 Oxygen Delivery Me thod Room Air Room Air Room Air 01/15/23 07:00 01/15/23 07:00 01/15/23 11:00 Temperature Pulse Rate Pulse Rate [Right Pulse Oximeter] 81 81 74 Respiratory Rate 16 16 16 Blood Pressure Blood Pressure [Ri ght Arm] 120/70 127/84 Pulse Oximetry 99 98 Oxygen Delivery Me thod CPAP Room Air DS: Data Data Completed and Pending Labs on day of discharge: Labs from last 24 hours 01/15/23 06:09 WBC 10.26 RBC 4.58 Hgb 12.9 Hct 41.2 MCV 90 MCH 28 MCHC 31 L RDW Coeff of Monica 13.8 Plt Count 342 Neut % (Auto) 88.6 H Lymph % (Auto) 7.0 L Franklin % (Auto) 3.1 Eos % (Auto) 0.0 Baso % (Auto) 0.0 Neut # (Auto) 9.10 H Lymph # (Auto) 0.70 L Franklin # (Auto) 0.30 Eos # (Auto) 0.00 Baso # (Auto) 0.00 Abs Immat Gran (auto) 0.13 Imm/Tot Granulo (auto) 1.3 Sodium 141 Potassium 4.0 Chloride 105 Carbon Dioxide 28 Anion Gap 8 BUN 8 Creatinine 0.5 Estimated Creat Clear 117.54 Estimated GFR 118 Glucose 138 H Calcium 9.7 Imaging Chest x-ray: Attestation: I have reviewed the pertinent imaging results. Radiologist's impression: No acute intrathoracic or cardiopulmonary process Discharge Plan Discharge Disposition: Home, Self-Care Date of Admission: 01/14/23 17:07 Attending Provider on Discharge: Hardy Carpenter Primary Care Provider: Marianela Ruby Condition: Improved Anticipated Discharge Date/Time: 01/15/23 13:00 Discharge Medications: New acetaminophen 160 mg/5 mL (5 mL) Solution 640 mg PO Q4H PRNQty: 250 0RF Continued varenicline 1 mg tablet 1 mg PO BID estradiol 2 mg tablet 2 mg PO DAILY tramadol 50 mg tablet 50 mg PO BID PRN ergocalciferol (vitamin D2) 1,250 mcg (50,000 unit) capsule 1,250 mcg PO QWEEK oxycodone 5 mg/5 mL solution 5 mg PO Q4-6H PRN (Reason: pain) Qty: 200 0RF sertraline 100 mg tablet 150 mg PO DAILY cholecalciferol (vitamin D3) 125 mcg (5,000 unit) capsule 125 mcg PO DAILY metformin 500 mg tablet 500 mg PO BIDWM cyclobenzaprine 10 mg tablet 10 mg PO HS PRN omeprazole 40 mg capsule,delayed release(DR/EC) 40 mg PO DAILY ondansetron 4 mg tablet,disintegrating 4 mg PO Q8H PRN (Reason: nausea) doxycycline hyclate 100 mg capsule 100 mg PO BID Qty: 20 0RF Discharge Orders: Discharge Order (Routine); Ordered 01/15/23 Ordered By: Hardy Carpenter Patient Education: Acetaminophen (By mouth), Electrolyte Supplement (By mouth), Care Instructions After Tonsillectomy and Adenoidectomy Additional Instructions: 1. Call your ENT physician as needed; 2. Keep follow-up appointment with your ENT physician as already established and as needed; 3. Saline gargles a minimum of 4 times daily as needed for the next 1 week. Activity Level: Activity as Tolerated Discharge Diet: Regular Follow Up Appointments: Marianela Ruby, PATriciaC [Primary Care Provider] - Forms: [facility] Info Instructions
== END 2023-01-15 12:35 | disposition home or self-care (01) ==
LOC: ED 16:48 → MEDSURG 17:07
PROVIDERS: Admitting Provider Hospitalist; Emergency Provider Family Medicine; PCP Physician Assistant Medical; Visit Provider Hospitalist
DX: G89.18 Other acute postprocedural pain (principal); G47.33 Obstructive sleep apnea (adult) (pediatric); R42 Dizziness and giddiness; R53.1 Weakness; R13.10 Dysphagia, unspecified; K21.9 Gastro-esophageal reflux disease without esophagitis; E78.5 Hyperlipidemia, unspecified; I10 Essential (primary) hypertension; R51.9 Headache, unspecified; Z79.84 Long term (current) use of oral hypoglycemic drugs; Z99.89 Dependence on other enabling machines and devices; Z98.890 Other specified postprocedural states; Z90.710 Acquired absence of both cervix and uterus; Z90.89 Acquired absence of other organs; Z90.722 Acquired absence of ovaries, bilateral; Z90.49 Acquired absence of other specified parts of digestive tract; Z98.84 Bariatric surgery status; Z87.891 Personal history of nicotine dependence
CPT/HCPCS: 36415; 71045; 80048; 82962; 83605; 85025; 87040; 94761; 96361; 96365; 96367; 96372; 96375; 96376; 99284; 99285; A9270; G0378; J0131; J1100; J1170; J1200; J1650; J2405; J7030

== ENCOUNTER 2023-04-03 10:44 | Outpatient (CLI) | payer BC, SELFPAY ==
--- NOTE | 2023-04-03 11:50 | W.ANESCHARGE ---
Anesthesia Charges Start Date/Time Anesthesia Start Date: 04/03/23 Anesthesia Start Time: 11:25 Stop Date/Time Anesthesia Stop Date: 04/03/23 Anesthesia Stop Time: 11:49
--- NOTE | 2023-04-03 11:55 | W.ANESCHARGE ---
Anesthesia Charges Start Date/Time Anesthesia Start Date: 04/03/23 Anesthesia Start Time: 11:25 Stop Date/Time Anesthesia Stop Date: 04/03/23 Anesthesia Stop Time: 11:49
== END 2023-04-03 10:45 | disposition home or self-care (01) ==
LOC: OP CLINIC 10:44
PROVIDERS: PCP Physician Assistant Medical; Visit Provider Internal Medicine Gastroenterology
DX: Z12.11 Encounter for screening for malignant neoplasm of colon (principal)
CPT/HCPCS: 00811; 00812; 45378; J2704

== ENCOUNTER 2024-04-07 16:12 | Emergency (ER) | payer BC, SELFPAY ==
[2024-04-07 16:14] VITALS: BP 148/95; PULSE 97; RESP 18; TEMP 35.8; O2SAT 98; BMI 41.6
--- NOTE | 2024-04-07 16:38 | ED.WOUNDLAC ---
HPI - Wound/Laceration General Time Seen by Provider: 16:38 Date Seen: 04/07/24 Chief Complaint: Laceration/Wound Stated Complaint: L pinky finger lac Time Seen by Provider: 04/07/24 16:37 Source: patient and RN notes reviewed Mode of arrival: ambulatory Limitations: no limitations History of Present Illness HPI narrative: This 48-year-old female is presenting with a flap type cut to the end of her left 5th finger. She was using in [employer] and cut the end of her finger. It did bleed quite a bit but her did get it bandaged. She he is on no blood thinners. She is not sure if this is something that can be stitched or should be stitched, was concerned because it did continue to bleed through bandaging. The last bandaging her did did seem to help. They state that they tried to get it tight to put some pressure on it. Place: home Patient tetanus UTD: Yes (2021) Related Data Home Medications ?Medication ?Instructions ?Recorded ?Confirmed estradiol 2 mg tablet 1 mg PO DAILY 01/25/22 04/07/24 tramadol 50 mg tablet 50 mg PO BID PRN 01/25/22 04/07/24 varenicline 1 mg tablet 1 mg PO BID 01/25/22 04/07/24 cholecalciferol (vitamin D3) 125 125 mcg PO DAILY 04/08/22 04/07/24 mcg (5,000 unit) capsule cyclobenzaprine 10 mg tablet 10 mg PO HS PRN 04/08/22 04/07/24 metformin 500 mg tablet 500 mg PO BIDWM 04/08/22 04/07/24 ergocalciferol (vitamin D2) 1,250 1,250 mcg PO QWEEK 06/21/22 04/07/24 mcg (50,000 unit) capsule omeprazole 40 mg capsule,delayed 40 mg PO DAILY 01/14/23 04/07/24 release ondansetron 4 mg disintegrating 4 mg PO Q8H PRN nausea 01/14/23 04/07/24 tablet escitalopram oxalate 10 mg tablet 15 mg PO DAILY 04/07/24 04/07/24 plecanatide 3 mg tablet (Trulance) 3 mg PO DAILY 04/07/24 04/07/24 Allergies Allergy/AdvReac Type Severity Reaction Status Date / Time cefaclor Allergy Verified 04/07/24 16:23 Penicillins Allergy Verified 04/07/24 16:23 Sulfa (Sulfonamide Allergy Anaphylaxis Verified 04/07/24 16:23 Antibiotics) yellow dye Allergy Verified 04/07/24 16:23 NSAIDS (Non-Steroidal AdvReac Verified 04/07/24 16:23 Anti-Inflamma Review of Systems Narrative: As per HPI. [facility] Medical History KARI on CPAP ?G47.33 - Obstructive sleep apnea (adult) (pediatric) (ICD-10) ?Z99.89 - Dependence on other enabling machines and devices (ICD-10) Hyperlipidemia ?E78.5 - Hyperlipidemia, unspecified (ICD-10) Fatty liver ?K76.0 - Fatty (change of) liver, not elsewhere classified (ICD-10) Ovary, torsion ?N83.519 - Torsion of ovary and ovarian pedicle, unspecified side (ICD-10) Hypertension ?I10 - Essential (primary) hypertension (ICD-10) Depression ?F32.A - Depression, unspecified (ICD-10) GERD (gastroesophageal reflux disease) ?K21.9 - Gastro-esophageal reflux disease without esophagitis (ICD-10) Sleep apnea ?G47.30 - Sleep apnea, unspecified (ICD-10) Surgical History History of esophagogastroduodenoscopy (EGD) ?Z98.890 - Other specified postprocedural states (ICD-10) History of cystoscopy ?Z98.890 - Other specified postprocedural states (ICD-10) History of removal of cyst ?Z98.890 - Other specified postprocedural states (ICD-10) History of arthroscopy of shoulder ?Z98.890 - Other specified postprocedural states (ICD-10) History of carpal tunnel release of both wrists ?Z98.890 - Other specified postprocedural states (ICD-10) History of hysterectomy ?Z90.710 - Acquired absence of both cervix and uterus (ICD-10) History of removal of both ovaries ?Z90.722 - Acquired absence of ovaries, bilateral (ICD-10) History of cholecystectomy ?Z90.49 - Acquired absence of other specified parts of digestive tract (ICD-10) History of appendectomy ?Z90.49 - Acquired absence of other specified parts of digestive tract (ICD-10) H/O gastric bypass ?Z98.84 - Bariatric surgery status (ICD-10) Status post arthroscopy of right shoulder (04/11/19) ?Z98.890 - Other specified postprocedural states (ICD-10) Social History What is your current living situation?: I presently have a place to live Problems where you live: no known problems Problems where you live details: NA In the past 12 months, utilities in danger of being shut off: no In the past 12 mos, have been you worried that your food would run out before you had money to buy more?: never true In the past 12 mos, the food you bought just didn't last and you didn't have money to buy more?: never true Highest level of school completed/degree received: Associate degree: occupational, technical, vocational program Smoking Status: Never smoker Do you use any of these nicotine containing products: None Second hand tobacco smoke exposure: No How often do you have a drink containing alcohol: never How often do you have six or more drinks on one occasion: Never AUDIT-C Alcohol total score: 0 Non-prescribed substance use: denies use Caffeine: No How often does anyone, including family, friends and others, physically hurt you: unable to answer How often does anyone, including family, friends and others, insult or talk down to you: unable to answer How often does anyone, including family, friends and others, threaten you with harm: unable to answer How often does anyone, including family, friends and others, scream or curse at you: unable to answer service: No Exam Const: Vital Signs, click to edit/add: Vital Signs - 24 hr 04/07/24 16:14 Temperature 96.5 F L Pulse Rate [Pulse Oximeter] 97 Respiratory Rate 18 Blood Pressure [Ri ght Upper Arm] 148/95 H Pulse Oximetry 98 Oxygen Delivery Me thod Room Air Patient has her finger bandaged. This is removed. There is a small little flap on the distal end of her left pinky. Neurovascular seems to be intact, the wound is actively bleeding once the bandage is removed. It is into the subcutaneous tissue but not into deep structures. Documenting provider has reviewed patient's vital signs: yes Course Course ED Course: Did discuss with patient that I do think we should attempt to try to secure this flap down. It is superficial in distal, she almost avulsed the full skin. The flap itself has a little bluish discoloration, she understands that this skin ultimately may not survive but do think this will provide the best chance of minimizing ongoing blood loss. This skin would just eventually slough off if this flap is not getting good enough blood supply. Did draw up 8 mL of 2% plain lidocaine, did a digital block initially with about 4 mL of lidocaine, will see if this is adequate after period of observation. Vital Signs Vital signs: Initial Vital Signs Temperature 96.5 F L 04/07/24 16:14 Temperature Source Temporal Artery Scan 04/07/24 16:14 Pulse Rate 97 04/07/24 16:14 Respiratory Rate 18 04/07/24 16:14 Blood Pressure 148/95 H 04/07/24 16:14 Blood Pressure Mean 112 H 04/07/24 16:14 Blood Pressure Position Sitting 04/07/24 16:14 Pulse Oximetry 98 04/07/24 16:14 Oxygen Delivery Method Room Air 04/07/24 16:14 Vital Signs Temperature 96.5 F L 04/07/24 16:14 Pulse Rate 97 04/07/24 16:14 Respiratory Rate 18 04/07/24 16:14 Blood Pressure 148/95 H 04/07/24 16:14 Pulse Oximetry 98 04/07/24 16:14 Oxygen Delivery Method Room Air 04/07/24 16:14 Temperature 96.5 F L 04/07/24 16:14 Pulse Rate 97 04/07/24 16:14 Respiratory Rate 18 04/07/24 16:14 Blood Pressure 148/95 H 04/07/24 16:14 Pulse Oximetry 98 04/07/24 16:14 Oxygen Delivery Method Room Air 04/07/24 16:14 Medications Administered Medications: Discontinued Medications Generic Name Dose Route Start Last Admin Trade Name Freq PRN Reason Stop Dose Admin Lidocaine HCl 8 ml 04/07/24 16:51 04/07/24 16:58 Lidocaine Hcl 2 % Multidose 20 Ml Vial INJECTION 04/07/24 16:52 8 ml ONCE ONE Administration Discharge Plan Discharge Clinical Impression: Laceration of finger of left hand Patient Disposition: Home, Self-Care Condition: Stable Instructions: Finger Laceration (ED) Additional Instructions: May shower and wash hands as usual but otherwise keep finger clean and dry. Use bandages in bacitracin well up in out in public to keep wound clean. Need to schedule a clinic followup in about 7-10 days to assess the wound for suture removal. If there is concern for infection, please seek re-evaluation. Activity Level: Activity as Tolerated Prescriptions: No Action varenicline 1 mg tablet 1 mg PO BID estradiol 2 mg tablet 1 mg PO DAILY Patient Comments: patient is weaning off tramadol 50 mg tablet 50 mg PO BID PRN ergocalciferol (vitamin D2) 1,250 mcg (50,000 unit) capsule 1,250 mcg PO QWEEK cholecalciferol (vitamin D3) 125 mcg (5,000 unit) capsule 125 mcg PO DAILY metformin 500 mg tablet 500 mg PO BIDWM cyclobenzaprine 10 mg tablet 10 mg PO HS PRN omeprazole 40 mg capsule,delayed release(DR/EC) 40 mg PO DAILY ondansetron 4 mg tablet,disintegrating 4 mg PO Q8H PRN (Reason: nausea) escitalopram oxalate 10 mg tablet 15 mg PO DAILY Trulance 3 mg tablet 3 mg PO DAILY Follow Up/Referrals: Marianela Ruby PA-C [Primary Care Provider] - Stand Alone Forms: [facility] Info Instructions Procedures Laceration Laceration 1: Pre procedure diagnosis: Left 5th finger laceration distal Post procedure diagnosis: Same Site marking: not applicable Name of person performing procedure: Shila Wilburn Site: hand (Left 5th finger specifically) Side (If applicable): left Size (cm): 0.5 Description: flap Depth: simple, single layer Local Anesthetic: lidocaine 2% Amount of anesthesia used (mL): 5 (Initial digital block with 4 mL, still had some distal sensation, did inject more and some just to the base of the laceration in the pad.) Pre-repair: wound explored and irrigated extensively Skin layer closed with: other (Ethilon) Size (cm): 6-0 Number of sutures: 3 Technique: simple, interrupted Estimated blood loss (if any): less than 5mls (Hemostasis was observed after the 3 sutures were placed )
[2024-04-07] MEDS: lidocaine HCL 2 % MULTIDOSE 20 ML VIAL 8 ML INJECTION (16:58)
== END 2024-04-07 17:57 | disposition home or self-care (01) ==
PROVIDERS: Emergency Provider Family Medicine; PCP Physician Assistant Medical
DX: S61.217A Laceration without foreign body of left little finger without damage to nail, initial encounter (principal); W26.9XXA Contact with unspecified sharp object(s), initial encounter
CPT/HCPCS: 12001; 99283

== ENCOUNTER 2024-04-18 08:00 | Outpatient (RCR) | payer BC, SELFPAY | END 2024-05-22 10:09 | disposition home or self-care (01) | PROVIDERS: PCP Physician Assistant Medical; Visit Provider Physician Assistant Medical | DX: M77.11 Lateral epicondylitis, right elbow (principal); M25.521 Pain in right elbow; M79.631 Pain in right forearm; M25.321 Other instability, right elbow; Z51.89 Encounter for other specified aftercare | CPT/HCPCS: 97033; 97035; 97110; 97140; 97165; X5282 ==

== ENCOUNTER 2024-06-11 06:31 | Outpatient (CLI) | payer BC, SELFPAY ==
[2024-06-11 07:11] VITALS: BP 146/87; PULSE 91; RESP 16; O2SAT 96
--- NOTE | 2024-06-11 07:34 | P.ORPRC_ITS ---
Procedure Note Date of procedure: 06/11/24 Procedure: PREOPERATIVE DIAGNOSIS: Right elbow common extensor tendinopathy POSTOPERATIVE DIAGNOSIS: Right elbow common extensor tendinopathy SURGEON: Sacha Aldana MD PRINT TRAFFIC MANAGER: Shira Banegas PA-C NAME OF OPERATION: Percutaneous tenotomy ANESTHESIA: Local ESTIMATED BLOOD LOSS: 0 mL. COMPLICATIONS: None. SPECIMENS: None. DRAINS: None. PREOPERATIVE ANTIBIOTICS: None INDICATIONS: The patient is a 48-year-old with a history of right elbow pain secondary to the above diagnosis. Despite appropriate non operative management, they continue to have symptoms. Operative intervention was recommended. The risks, benefits and expected outcomes were discussed in detail. These included but were not limited to: Infection, bleeding, injury to blood vessel or nerve, venous thromboembolism. All questions were answered to their satisfaction. PROCEDURE: The patient was placed supine on the hospital cart. The elbow was imaged in the long axis with the ultrasound transducer. Normal acoustic landmarks were identified. We then sterilely prepped and draped the skin, and used a sterile probe cover with sterile gel. Local anesthesia was established with 10 mL of a solution containing 2 % lidocaine without epinephrine, 0.5% Marcaine without epinephrine and sodium bicarbonate. An 11 blade was used to incise the skin. The Tenex TX 1 micro tip was used to treat the common extensor tendon for a total of 2 minutes and 17 seconds. The incision was Steri-Stripped closed. A dry dressing was applied. Sponge and needle counts were correct x2. The patient tolerated the procedure well. There were no apparent complications. They were discharged to home in satisfactory condition. PLAN: The patient may use the upper extremity as tolerates. Tylenol, ice and ibuprofen can be used for pain/discomfort. They may ramp up activity as the elbow will allow. They will follow up in the office in 6 weeks to assess their progress.
== END 2024-06-11 07:41 | disposition home or self-care (01) ==
LOC: OP CLINIC 06:31
PROVIDERS: PCP Physician Assistant Medical; Visit Provider Orthopaedic Surgery
DX: M77.11 Lateral epicondylitis, right elbow (principal)
CPT/HCPCS: 24357; 76942; J0665

== ENCOUNTER 2024-06-21 07:15 | Emergency (ER) | payer BC, SELFPAY ==
[2024-06-21] VITALS (7 sets, daily range): BP systolic 132–162; BP diastolic 86–100; PULSE 81–93; RESP 14–20; TEMP 36.8; O2SAT 95–96; BMI 42.5
--- NOTE | 2024-06-21 07:29 | ED.ABDPAIN ---
HPI - Abdominal Pain General Time Seen by Provider: 07:30 <Karol Bryant MD - Last Filed: 06/21/24 08:30> Date Seen: 06/21/24 <Karol Bryant MD - Last Filed: 06/21/24 08:30> Chief Complaint: Abdominal Pain <Karol Bryant MD - Last Filed: 06/21/24 08:30> Stated Complaint: pancreatitis flare up <Karol Bryant MD - Last Filed: 06/21/24 08:30> Time Seen by Provider: 06/21/24 07:29 <Karol Bryant MD - Last Filed: 06/21/24 08:30> Source: patient, RN notes reviewed and old records reviewed <Karol Bryant MD - Last Filed: 06/21/24 08:30> Mode of arrival: ambulatory <Karol Bryant MD - Last Filed: 06/21/24 08:30> Limitations: no limitations <Karol Bryant MD - Last Filed: 06/21/24 08:30> History of Present Illness HPI narrative: Giovani is a very pleasant 48-year-old female with history of idiopathic pancreatitis at the end of 2021, history of gastric bypass greater than a decade ago no complications, history of cholecystectomy and appendectomy and as well as hysterectomy who comes to the emergency room with abdominal pain. Patient notes that she awoke at approximately 0600 hours with epigastric discomfort radiating into her back. This feels similar to her pancreatitis that she has experienced in the past. She denies chest pain nausea vomiting diarrhea. She thought she may be needed to have a bowel movement but only had a small production and this did not improve the pain. She has not had any recent alcohol, in fact only drinks a few times over the course of a year. She has not had cough cold congestion. No blood in her stool. She has not taken anything for pain at this point. Movement or resting does not really seem to impact the pain. <Karol Bryant MD - Last Filed: 06/21/24 08:30> Related Data Home Medications: Home Medications ?Medication ?Instructions ?Recorded ?Confirmed estradiol 2 mg tablet 1 mg PO DAILY 01/25/22 06/03/24 tramadol 50 mg tablet 50 mg PO BID PRN 01/25/22 06/03/24 varenicline tartrate 1 mg tablet 1 mg PO BID 01/25/22 06/21/24 cholecalciferol (vitamin D3) 125 125 mcg PO DAILY 04/08/22 06/21/24 mcg (5,000 unit) capsule cyclobenzaprine 10 mg tablet 10 mg PO HS PRN 04/08/22 06/03/24 ergocalciferol (vitamin D2) 1,250 1,250 mcg PO QWEEK 06/21/22 06/03/24 mcg (50,000 unit) capsule omeprazole 40 mg capsule,delayed 40 mg PO DAILY 01/14/23 06/21/24 release ondansetron 4 mg disintegrating 4 mg PO Q8H PRN nausea 01/14/23 06/03/24 tablet escitalopram oxalate 10 mg tablet 15 mg PO DAILY 04/07/24 06/21/24 estradiol 0.01% (0.1 mg/gram) 1 g vaginal 2XW 06/03/24 06/03/24 vaginal cream Previous Rx's ?Medication ?Instructions ?Recorded hydrocodone 5 mg-acetaminophen 325 1 tab PO Q4-6H PRN pain #15 tabs 06/21/24 mg tablet <Karol Bryant MD - Last Filed: 06/21/24 08:30> Allergies/Adverse Reactions: Allergies Allergy/AdvReac Type Severity Reaction Status Date / Time cefaclor Allergy Severe Anaphylaxis Verified 06/21/24 07:27 Penicillins Allergy Severe Anaphylaxis Verified 06/21/24 07:27 Sulfa (Sulfonamide Allergy Severe Anaphylaxis Verified 06/21/24 07:27 Antibiotics) yellow dye Allergy Verified 06/21/24 07:27 NSAIDS (Non-Steroidal AdvReac Verified 06/21/24 07:27 Anti-Inflamma <Karol Bryant MD - Last Filed: 06/21/24 08:30> Review of Systems Status of ROS Reports: 10 or more systems reviewed and unremarkable except as noted in History and below <Karol Bryant MD - Last Filed: 06/21/24 08:30> Const Denies: fever, chills or fatigue <Karol Bryant MD - Last Filed: 06/21/24 08:30> Eyes Denies: change in vision <Karol Bryant MD - Last Filed: 06/21/24 08:30> ENMT Denies: throat pain, neck pain or nasal congestion <Karol Bryant MD - Last Filed: 06/21/24 08:30> Cardio Denies: chest pain, palpitations, swelling of feet/ankles, lightheadedness or shortness of breath with exertion <Karol Bryant MD - Last Filed: 06/21/24 08:30> Resp Denies: shortness of breath or cough <Karol Bryant MD - Last Filed: 06/21/24 08:30> GI Reports: abdominal pain; Denies: nausea, vomiting, diarrhea, constipation or blood in stool <Karol Bryant MD - Last Filed: 06/21/24 08:30> Denies: painful urination or urinary frequency <Karol Bryant MD - Last Filed: 06/21/24 08:30> Musculo Reports: back pain; Denies: neck pain <Karol Bryant MD - Last Filed: 06/21/24 08:30> Endo Denies: fatigue <Karol Bryant MD - Last Filed: 06/21/24 08:30> PFSH PFSH Medical History: Medical History KARI on CPAP ?G47.33 - Obstructive sleep apnea (adult) (pediatric) (ICD-10) ?Z99.89 - Dependence on other enabling machines and devices (ICD-10) Hyperlipidemia ?E78.5 - Hyperlipidemia, unspecified (ICD-10) Fatty liver ?K76.0 - Fatty (change of) liver, not elsewhere classified (ICD-10) Ovary, torsion ?N83.519 - Torsion of ovary and ovarian pedicle, unspecified side (ICD-10) Hypertension ?I10 - Essential (primary) hypertension (ICD-10) Depression ?F32.A - Depression, unspecified (ICD-10) GERD (gastroesophageal reflux disease) ?K21.9 - Gastro-esophageal reflux disease without esophagitis (ICD-10) Sleep apnea ?G47.30 - Sleep apnea, unspecified (ICD-10) <Karol Bryant MD - Last Filed: 06/21/24 08:30> Surgical History: Surgical History History of tenotomy (06/11/24) ?Z98.890 - Other specified postprocedural states (ICD-10) S/P adenoidectomy ?Z90.89 - Acquired absence of other organs (ICD-10) History of esophagogastroduodenoscopy (EGD) ?Z98.890 - Other specified postprocedural states (ICD-10) History of cystoscopy ?Z98.890 - Other specified postprocedural states (ICD-10) History of removal of cyst ?Z98.890 - Other specified postprocedural states (ICD-10) History of carpal tunnel release of both wrists ?Z98.890 - Other specified postprocedural states (ICD-10) History of hysterectomy ?Z90.710 - Acquired absence of both cervix and uterus (ICD-10) History of removal of both ovaries ?Z90.722 - Acquired absence of ovaries, bilateral (ICD-10) History of cholecystectomy ?Z90.49 - Acquired absence of other specified parts of digestive tract (ICD-10) History of appendectomy ?Z90.49 - Acquired absence of other specified parts of digestive tract (ICD-10) H/O gastric bypass ?Z98.84 - Bariatric surgery status (ICD-10) Status post arthroscopy of right shoulder (04/11/19) ?Z98.890 - Other specified postprocedural states (ICD-10) <Karol Bryant MD - Last Filed: 06/21/24 08:30> Social History: Social History What is your current living situation?: I presently have a place to live Problems where you live: no known problems Problems where you live details: NA In the past 12 months, utilities in danger of being shut off: no In past 12 months, lack of transportation kept you from medical appts, meetings, work, or getting things needed for daily living: no In the past 12 mos, have been you worried that your food would run out before you had money to buy more?: never true In the past 12 mos, the food you bought just didn't last and you didn't have money to buy more?: never true Highest level of school completed/degree received: Associate degree: occupational, technical, vocational program Smoking Status: Never smoker Do you use any of these nicotine containing products: None Second hand tobacco smoke exposure: No How often do you have a drink containing alcohol: monthly or less How often do you have six or more drinks on one occasion: Never AUDIT-C Alcohol total score: 1 Non-prescribed substance use: denies use Caffeine: No How often does anyone, including family, friends and others, physically hurt you: unable to answer How often does anyone, including family, friends and others, insult or talk down to you: unable to answer How often does anyone, including family, friends and others, threaten you with harm: unable to answer How often does anyone, including family, friends and others, scream or curse at you: unable to answer service: No <Karol Bryant MD - Last Filed: 06/21/24 08:30> Exam Narrative: Exam Narrative: Chau is alert and oriented. She is nontoxic in appearance and mentating normally. External ears eyes nose clear. Heart with regular rate and rhythm. Lungs are clear bilaterally. Abdomen shows some tenderness in the epigastrium Left upper and right upper quadrants. no masses palpated elevated BMI and therefore difficult to ascertain distension. Bowel sounds are present but decreased. Lower extremities without edema. Pedal pulses are symmetrical. <Karol Bryant MD - Last Filed: 06/21/24 08:30> Const: Vital Signs, click to edit/add: Vital Signs - 24 hr 06/21/24 07:23 06/21/24 08:06 Temperature 98.3 F Pulse Rate [Pulse Oximeter] 92 93 Respiratory Rate 20 18 Blood Pressure [Ri ght Upper Arm] 162/96 H 132/86 Pulse Oximetry 96 95 Oxygen Delivery Me thod Room Air Room Air <Karol Bryant MD - Last Filed: 06/21/24 08:30> Vital Signs, click to edit/add: Vital Signs - 24 hr 06/21/24 07:23 06/21/24 08:06 Temperature 98.3 F Pulse Rate [Pulse Oximeter] 92 93 Respiratory Rate 20 18 Blood Pressure [Ri ght Upper Arm] 162/96 H 132/86 Pulse Oximetry 96 95 Oxygen Delivery Me thod Room Air Room Air <Osvaldo Urbina MD - Last Filed: 06/21/24 11:35> Documenting provider has reviewed patient's vital signs: yes <Karol Bryant MD - Last Filed: 06/21/24 08:30> Course Course ED Course: differential diagnosis includes but is not limited to pancreatitis, colitis, small-bowel obstruction, gastritis, angina. Will place IV and use Toradol 15 mg IV for pain control. Will elevate this medication to a narcotic if Toradol is not helpful. Will check CBC, comprehensive panel, lipase, lactate, CRP and abdominal CT with contrast. Patient and her are in agreement with this plan. <Karol Bryant MD - Last Filed: 06/21/24 08:30> Vital Signs Vital signs: Initial Vital Signs Temperature 98.3 F 06/21/24 07:23 Temperature Source Temporal Artery Scan 06/21/24 07:23 Pulse Rate 92 06/21/24 07:23 Respiratory Rate 20 06/21/24 07:23 Blood Pressure 162/96 H 06/21/24 07:23 Blood Pressure Mean 118 H 06/21/24 07:23 Blood Pressure Position Semi-Fowlers 06/21/24 07:23 Pulse Oximetry 96 06/21/24 07:23 Oxygen Delivery Method Room Air 06/21/24 07:23 Vital Signs Temperature 98.3 F 06/21/24 07:23 Pulse Rate 92 06/21/24 07:23 Respiratory Rate 20 06/21/24 07:23 Blood Pressure 162/96 H 06/21/24 07:23 Pulse Oximetry 96 06/21/24 07:23 Oxygen Delivery Method Room Air 06/21/24 07:23 Temperature 98.3 F 06/21/24 07:23 Pulse Rate 93 06/21/24 08:06 Respiratory Rate 18 06/21/24 08:06 Blood Pressure 132/86 06/21/24 08:06 Pulse Oximetry 95 06/21/24 08:06 Oxygen Delivery Method Room Air 06/21/24 08:06 <Karol Bryant MD - Last Filed: 06/21/24 08:30> Initial Vital Signs Temperature 98.3 F 06/21/24 07:23 Temperature Source Temporal Artery Scan 06/21/24 07:23 Pulse Rate 92 06/21/24 07:23 Respiratory Rate 20 06/21/24 07:23 Blood Pressure 162/96 H 06/21/24 07:23 Blood Pressure Mean 118 H 06/21/24 07:23 Blood Pressure Position Semi-Fowlers 06/21/24 07:23 Pulse Oximetry 96 06/21/24 07:23 Oxygen Delivery Method Room Air 06/21/24 07:23 Vital Signs Temperature 98.3 F 06/21/24 07:23 Pulse Rate 92 06/21/24 07:23 Respiratory Rate 20 06/21/24 07:23 Blood Pressure 162/96 H 06/21/24 07:23 Pulse Oximetry 96 06/21/24 07:23 Oxygen Delivery Method Room Air 06/21/24 07:23 Temperature 98.3 F 06/21/24 07:23 Pulse Rate 93 06/21/24 08:06 Respiratory Rate 18 06/21/24 08:06 Blood Pressure 132/86 06/21/24 08:06 Pulse Oximetry 95 06/21/24 08:06 Oxygen Delivery Method Room Air 06/21/24 08:06 <Osvaldo Urbina MD - Last Filed: 06/21/24 11:35> Medications Administered Medications: Discontinued Medications Generic Name Dose Route Start Last Admin Trade Name Andrew PRN Reason Stop Dose Admin Hydromorphone HCl 0.5 mg 06/21/24 09:08 06/21/24 09:14 Hydromorphone 0.5 Mg/0.5 Ml Inj IVP 06/21/24 09:09 0.5 mg ONCE ONE Administration Sodium Chloride 1,000 mls @ 1,000 mls/hr 06/21/24 07:35 06/21/24 09:00 0.9 % Sodium Chloride 1000 Ml IV 06/21/24 08:34 Infused .Q1H JULIA Infusion Ketorolac Tromethamine 15 mg 06/21/24 07:34 06/21/24 08:00 Ketorolac 15 Mg/Ml Inj IVP 06/21/24 07:35 15 mg ONCE ONE Administration Lidocaine/Aluminum/Magnesium/Simeth 30 ml 06/21/24 09:57 06/21/24 10:27 Gi Cocktail (Visc Lido/Antacid) 30 Ml PO 06/21/24 09:58 30 ml ONCE ONE Administration <Karol Bryant MD - Last Filed: 06/21/24 08:30> Discontinued Medications Generic Name Dose Route Start Last Admin Trade Name Andrew PRN Reason Stop Dose Admin Hydromorphone HCl 0.5 mg 06/21/24 09:08 06/21/24 09:14 Hydromorphone 0.5 Mg/0.5 Ml Inj IVP 06/21/24 09:09 0.5 mg ONCE ONE Administration Sodium Chloride 1,000 mls @ 1,000 mls/hr 06/21/24 07:35 06/21/24 09:00 0.9 % Sodium Chloride 1000 Ml IV 06/21/24 08:34 Infused .Q1H JULIA Infusion Ketorolac Tromethamine 15 mg 06/21/24 07:34 06/21/24 08:00 Ketorolac 15 Mg/Ml Inj IVP 06/21/24 07:35 15 mg ONCE ONE Administration Lidocaine/Aluminum/Magnesium/Simeth 30 ml 06/21/24 09:57 06/21/24 10:27 Gi Cocktail (Visc Lido/Antacid) 30 Ml PO 06/21/24 09:58 30 ml ONCE ONE Administration <Osvaldo Urbina MD - Last Filed: 06/21/24 11:35> MDM - Abdominal Pain MDM Narrative Medical decision making narrative: 1. Abdominal pain patient currently awaiting CT. Will do a trial of Toradol for pain control. Labs currently pending. I will sign this patient out to my partner Dr. Urbina for review of CT, labs and disposition. <Karol Bryant MD - Last Filed: 06/21/24 08:30> 1. Abdominal pain patient currently awaiting CT. Will do a trial of Toradol for pain control. Labs currently pending. I will sign this patient out to my partner Dr. Urbina for review of CT, labs and disposition. Lab and imaging studies returned with normal findings. The patient continues to have upper epigastric pain and states that she has had pain similar to this in the past. She has had her gallbladder, appendix, uterus removed and has had a gastric bypass surgery. The patient did receive an oral dose of GI cocktail which brought some relief to her symptoms. She initially received Toradol which brought pain relief but then requested more medicine at which time Dilaudid was administered. She is okay to be discharged home. I advised her to increase her omeprazole dose to 2 tablets daily for the next week or so. She received a prescription for [place]. I advised her to follow-up with her primary physician or with her surgeon or mask layout designer for ongoing management if needed. <Osvaldo Urbina MD - Last Filed: 06/21/24 11:35> Medical Records Attestation: I reviewed the patient's medical records. <Karol Bryant MD - Last Filed: 06/21/24 08:30> Lab Data Attestation: I reviewed the patient's lab results. <Karol Bryant MD - Last Filed: 06/21/24 08:30> Labs: Lab Results 06/21/24 Range/Units 07:50 WBC 5.53 (4.50-11.00) K/uL RBC 4.62 (4.00-5.20) m/uL Hgb 13.2 (12.0-16.0) gm/dL Hct 42.3 (33.0-51.0) % MCV 92 (80-100) fL MCH 29 (26-34) pg MCHC 31 L (32-36) gm/dL RDW Coeff of Monica 13.4 (11.5-15.5) % Plt Count 319 (140-440) K/uL Neut % (Auto) 59.4 (42.0-72.0) % Lymph % (Auto) 31.6 (20-44) % [place] % (Auto) 6.1 (0.0-11.0) % Eos % (Auto) 2.0 (0.0-7.0) % Baso % (Auto) 0.7 (0.0-3.0) % Neut # (Auto) 3.28 (1.7-7.0) K/uL Lymph # (Auto) 1.75 (0.90-2.90) K/uL [place] # (Auto) 0.30 (0.00-0.90) K/UL Eos # (Auto) 0.11 (0.00-0.50) K/uL Baso # (Auto) 0.04 (0.00-0.30) K/uL Abs Immat Gran (auto) 0.01 (0.00-0.30) K/uL Imm/Tot Granulo (auto) 0.2 % Sodium 138 (135-149) mmol/L Potassium 4.4 (3.6-5.1) mmol/L Chloride 103 (96-114) mmol/L Carbon Dioxide 26 (20-32) mmol/L Anion Gap 9 (7-15) mEq/L BUN 11 (5-24) mg/dL Creatinine 0.7 (0.5-1.5) mg/dL Estimated Creat Clear 83.07 Estimated GFR 108 ml/min Glucose 86 (60-115) mg/dL Lactate 1.6 (0.5-1.9) mmol/L Calcium 9.2 (8.4-10.6) mg/dL Total Bilirubin 0.3 (0.1-1.5) mg/dL AST 23 (12-35) U/L ALT 17 (4-35) U/L Alkaline Phosphatase 92 (40-150) U/L Troponin I < 0.01 L (0.01-0.04) ng/mL C-Reactive Protein 0.7 (0.5-1.0) mg/dL Total Protein 7.5 (6.0-8.3) g/dL Albumin 4.4 (3.3-5.0) g/dL Lipase 114 (23-300) U/L <Karol Bryant MD - Last Filed: 06/21/24 08:30> Lab Results 06/21/24 Range/Units 07:50 WBC 5.53 (4.50-11.00) K/uL RBC 4.62 (4.00-5.20) m/uL Hgb 13.2 (12.0-16.0) gm/dL Hct 42.3 (33.0-51.0) % MCV 92 (80-100) fL MCH 29 (26-34) pg MCHC 31 L (32-36) gm/dL RDW Coeff of [place] 13.4 (11.5-15.5) % Plt Count 319 (140-440) K/uL Neut % (Auto) 59.4 (42.0-72.0) % Lymph % (Auto) 31.6 (20-44) % [place] % (Auto) 6.1 (0.0-11.0) % Eos % (Auto) 2.0 (0.0-7.0) % Baso % (Auto) 0.7 (0.0-3.0) % Neut # (Auto) 3.28 (1.7-7.0) K/uL Lymph # (Auto) 1.75 (0.90-2.90) K/uL [place] # (Auto) 0.30 (0.00-0.90) K/UL Eos # (Auto) 0.11 (0.00-0.50) K/uL Baso # (Auto) 0.04 (0.00-0.30) K/uL Abs Immat Gran (auto) 0.01 (0.00-0.30) K/uL Imm/Tot Granulo (auto) 0.2 % Sodium 138 (135-149) mmol/L Potassium 4.4 (3.6-5.1) mmol/L Chloride 103 (96-114) mmol/L Carbon Dioxide 26 (20-32) mmol/L Anion Gap 9 (7-15) mEq/L BUN 11 (5-24) mg/dL Creatinine 0.7 (0.5-1.5) mg/dL Estimated Creat Clear 83.07 Estimated GFR 108 ml/min Glucose 86 (60-115) mg/dL Lactate 1.6 (0.5-1.9) mmol/L Calcium 9.2 (8.4-10.6) mg/dL Total Bilirubin 0.3 (0.1-1.5) mg/dL AST 23 (12-35) U/L ALT 17 (4-35) U/L Alkaline Phosphatase 92 (40-150) U/L Troponin I < 0.01 L (0.01-0.04) ng/mL C-Reactive Protein 0.7 (0.5-1.0) mg/dL Total Protein 7.5 (6.0-8.3) g/dL Albumin 4.4 (3.3-5.0) g/dL Lipase 114 (23-300) U/L <Osvaldo Urbina MD - Last Filed: 06/21/24 11:35> Imaging Data CT scan - abdomen: Attestation: I have reviewed the pertinent imaging results. <Karol Bryant MD - Last Filed: 06/21/24 08:30> Radiologist's impression: 1. Status post gastric bypass without evidence of dilated bowel or localized inflammation. 2. No acute findings to explain the patient`s epigastric pain. <Osvaldo Urbina MD - Last Filed: 06/21/24 11:35> ECG Data Attestation: I personally reviewed and interpreted this ECG as follows: <Karol Bryant MD - Last Filed: 06/21/24 08:30> ECG interpretation date: 06/21/24 <Karol Bryant MD - Last Filed: 06/21/24 08:30> Interpretation: NSR rate of 86 No acute t or st changes NL FL and QT intervals <Karol Bryant MD - Last Filed: 06/21/24 08:30> Discharge Plan Discharge Clinical Impression: Abdominal pain <Karol Bryant MD - Last Filed: 06/21/24 08:30> Patient Disposition: Home, Self-Care <Karol Bryant MD - Last Filed: 06/21/24 08:30> Condition: Stable <Karol Bryant MD - Last Filed: 06/21/24 08:30> Additional Instructions: Okay to increase omeprazole to 2 tablets daily for the next week or so. Take medication otherwise as prescribed and needed. Follow up with primary physician or specialist if not improving or return if worsening. <Karol Bryant MD - Last Filed: 06/21/24 08:30> Prescriptions: New hydrocodone-acetaminophen 5-325 mg tablet 1 tab PO Q4-6H PRN (Reason: pain) Qty: 15 0RF No Action estradiol 0.01 % (0.1 mg/gram) cream 1 g vaginal 2XW varenicline tartrate 1 mg tablet 1 mg PO BID estradiol 2 mg tablet 1 mg PO DAILY Patient Comments: patient is weaning off tramadol 50 mg tablet 50 mg PO BID PRN ergocalciferol (vitamin D2) 1,250 mcg (50,000 unit) capsule 1,250 mcg PO QWEEK cholecalciferol (vitamin D3) 125 mcg (5,000 unit) capsule 125 mcg PO DAILY cyclobenzaprine 10 mg tablet 10 mg PO HS PRN omeprazole 40 mg capsule,delayed release(DR/EC) 40 mg PO DAILY ondansetron 4 mg tablet,disintegrating 4 mg PO Q8H PRN (Reason: nausea) escitalopram oxalate 10 mg tablet 15 mg PO DAILY <Karol Bryant MD - Last Filed: 06/21/24 08:30> Follow Up/Referrals: Marianela Ruby PATriciaC [Primary Care Provider] - <Karol Bryant MD - Last Filed: 06/21/24 08:30> Stand Alone Forms: MyHealth Info Instructions <Karol Bryant MD - Last Filed: 06/21/24 08:30>
--- OUTSIDE RECORDS SUMMARY | 2024-06-21 07:48 | XMS_ITS | Clinical Summary ---
Author Organization [facility] Address [address] [place] [address] Care Team Providers Care Brand Ambassador Name Role Phone No Ref-Primary, Physician Primary Care Provider Pablo Vanessa DPM Unavailable [phone] Allergies Active Allergy Reactions Criticality Noted Date Comments Cefaclor Swelling 01/20/2014 Ibuprofen Other (See Comments) 01/20/2014 Gastric bypass- not tolerated Other Environmental Allergy Swelling High 01/20/2014 Yellow dye #6 Penicillin G Benzathine Anaphylaxis High 01/20/2014 Sulfa Antibiotics Swelling 01/20/2014 Medications varenicline (CHANTIX) 1 mg tablet [VARENICLINE (CHANTIX) 1 MG TABLET] Take 1 mg by mouth 2 (two) times a day. Take with full glass of water. 4 Active cyanocobalamin, vitamin B-12, 1,000 mcg Subl [CYANOCOBALAMI N, VITAMIN B-12, 1,000 MCG SUBL] Place 1,000 mcg under the tongue daily. 4 Active cholecalciferol , vitamin D3, 5,000 unit Tab [CHOLECALCIFER OL, VITAMIN D3, 5,000 UNIT TAB] Take 1 tablet by mouth daily. 4 Active sertraline (ZOLOFT) 100 MG tablet [SERTRALINE (ZOLOFT) 100 MG TABLET] Take 1 tablet by mouth daily. 0 7 Active estradiol (ESTRACE) 2 MG tablet [ESTRADIOL (ESTRACE) 2 MG TABLET] Take 1 tablet by mouth daily. 0 7 Active traMADol (ULTRAM) 50 mg tablet [TRAMADOL (ULTRAM) 50 MG TABLET] Take 1 tablet by mouth daily as needed. 7 Active cyclobenzaprine (FLEXERIL) 10 MG tablet [CYCLOBENZAPRI NE (FLEXERIL) 10 MG TABLET] Take 1 tablet by mouth daily as needed. 0 7 Active omeprazole (PRILOSEC) 20 MG capsule [OMEPRAZOLE (PRILOSEC) 20 MG CAPSULE] Take 20 mg by mouth Daily before breakfast. 7 Active docusate sodium (COLACE) 50 MG capsule [DOCUSATE SODIUM (COLACE) 50 MG CAPSULE] Take by mouth 4 (four) times a day. 7 Active dextrin (FIBER, DEXTRIN,) 3 gram/3.5 gram Powd [DEXTRIN (FIBER, DEXTRIN,) 3 GRAM/3.5 GRAM POWD] Take 1 Dose by mouth daily. 7 Active doxycycline (VIBRAMYCIN) 100 MG capsule [DOXYCYCLINE (VIBRAMYCIN) 100 MG CAPSULE] Take 100 mg by mouth 2 (two) times a day. 8 Active multivitamin (ONE A DAY) per tablet [MULTIVITAMIN (ONE A DAY) PER TABLET] Take 1 tablet by mouth 2 (two) times a day. 6 Active zinc gluconate 50 mg tablet [ZINC GLUCONATE 50 MG TABLET] Take 50 mg by mouth every other day. 8 Active calcium citrate-vitamin D (CITRACAL+D) 315-200 mg-unit per tablet [CALCIUM CITRATE-VITAMI N D (CITRACAL+D) 315-200 MG-UNIT PER TABLET] Take 1 tablet by mouth every other day. 8 Active nystatin-triamc inolone (MYCOLOG) ointmentIndicat ions:Intertrigo [NYSTATIN-TRIA MCINOLONE (MYCOLOG) OINTMENT] Apply thin layer twice daily as needed for skin fold rash.. 30 g 0 8 Active phentermine (ADIPEX-P) 37.5 mg tabletIndicatio ns:Obesity, Class I, BMI 30.0-34.9 (see actual BMI) [PHENTERMINE (ADIPEX-P) 37.5 MG TABLET] Half tablet up to one full tablet daily. 90 tablet 0 9 Active Active Problems Problem Noted Date Diagnosed Date Obesity (BMI 30.0-34.9) 03/09/2017 Hx of gastric bypass 03/09/2017 Overview (10/07/2020): 09/02/13 R[facility] gastric bypass with Dr. Mcnair, preop 311 lbs. Other and unspecified postsurgical nonabsorption 04/04/2014 Rash 04/04/2014 Family History Medical History Relation Comments Thyroid Disease Father Hypertension Mother Thyroid Cancer Mother No Known Problems Sister Relation Status Comments Father Alive Mother Alive Sister Alive Social History Tobacco Use Types Packs/Day Years Used Date Smoking Tobacco: Former Cigarettes 0.3 18 Smokeless Tobacco: Never Tobacco Cessation:Counseling Given: Not Answered Comments:down to rare use every couple Alcohol Use Standard Drinks/Week Comments No 0 (1 standard drink = 0.6 oz pur e alcohol) PHQ-2 Answer Date Recorded PHQ-2 Score 0 01/04/2024 Adolescent Education Answer Date Record ed Getting School Help Needed Not on file 02/08 Comments No Sex and Gender Information Value Date Recorded Sex Assigned at Not on file Legal Sex Female 5:10 AM [employer] WORK[employer] Gender Identity Not on file Sexual Orientation Not on file Last Filed Vital Signs Vital Sign Reading Time Taken Comments Blood Pressure 126/82 01/04/2024 3:38 PM CDT Pulse - - Temperature - - Respiratory Rate - - Oxygen Saturation - - Inhaled Oxygen Concentration - - Weight 102.1 kg (225 lb) 01/04/2024 3:38 PM CDT Height 160 cm (5' 3) 01/04/2024 3:38 PM CDT Body Mass Index 39.86 01/04/2024 3:38 PM CDT Plan of Treatment Health Maintenance Due Date Last Done Comments ADVANCE CARE PLANNING 1975 ANNUAL REVIEW OF HM ORDERS 1977 CT COLONOGRAPHY 1977 FIT 1975 FLEX SIG 1975 sDNA (Cologuard) 1975 HEPATITIS B IMMUNIZATION (1 of 3 - 19+ 3-dose series) 1996 PAP 1998 GLUCOSE 03/29/2013 03/29/2010 LIPID 2017 COVID-19 Vaccine ( season) 2023 02/17/2023, 04/13/2022, 04/15/2021, Additional history exists INFLUENZA VACCINE (#1) 2023 , 01/12/2022, 01/20/2021, Additional history exists YEARLY PREVENTIVE VISIT 01/10/2024 01/09/2023, 01/25 PHQ-2 (once per calendar year) 2024 01/04/2024 MAMMO SCREENING 03/29/2025 03/29/2023, 1209/2022, 03/25/2022, Additional history exists ZOSTER IMMUNIZATION (1 of 2) 12/25/2027 DTAP/TDAP/TD IMMUNIZATION (5 - Td or Tdap) 04/13/2032 04/13/2022, 01/26/2011, 06/22/1983, Additional history exists COLONOSCOPY 04/03/2033 04/03/2023 COLORECTAL CANCER SCREENING 04/03/2033 HEPATITIS C SCREENING Completed 05/30/2018 HIV SCREENING Completed 05/30/2018 HPV IMMUNIZATION Aged Out No longer e ligible based on patient's age to complete this topic MENINGITIS IMMUNIZATION Aged Out No l onger eligible based on patient's age to complete this topic Pneumococcal Vaccine: Pediatrics (0 to 5 Years) and At-Risk Patients (6 to 49 Years) Aged Out No longer eligible based on patient's age to complete this topic Procedures Procedure Name Priority Date/Time Associated Diagnosis Comments BASIC METABOLIC PANEL STAT 03/29/2010 2:45 PM [employer] from Last 3 Months or Most Recently Relevant to Health Maintenance Results * Basic metabolic panel (03/29/2010 2:45 PM [employer]) Sodium 137 133 - 144 mmol/L [facility] Potassium 4.2 3.4 - 5.3 mmol/L [facility] Chloride 101 94 - 109 mmol/L [facility] Carbon Dioxide 28 20 - 32 mmol/L [facility] Glucose 88 60 - 99 mg/dL [facility] Urea Nitrogen 12 5 - 24 mg/dL [facility] Creatinine 0.71 0.52 - 1.04 mg/dL [facility] Comment:New IDMS-traceable c alibration beginning 08/23/07 GFR Estimate >90 >60 mL/min/1.7 m2 M[facility]YS GFR Estimate If Black >90 >60 mL/min/1.7 m2 [facility] Calcium 9.6 8.5 - 10.4 mg/dL [facility] Anion Gap 9 6 - 17 mmol/L [facility] 03/29/2010 2:45 PM [employer] 03/29/2010 2:33 PM [employer] Can Quinones MD LAB - BLOOD ORDERABLES Final Result [facility] from Last 3 Months or Most Recently Relevant to Health Maintenance Insurance BC[employer] OF [place] BC[employer] OF [place] Care Teams Brand Ambassador Relationship Specialty Start Date End Date No Ref-Primary, Physician PCP - General 09/01/23 Pablo Vanessa DPM [id number] [facility] [address] [place], [place] [address] Assigned Surgical Provider 01/15/24
--- OUTSIDE RECORDS SUMMARY | 2024-06-21 07:48 | XMS_ITS | Clinical Summary ---
Author Organization [facility] Address [address] , [address] [place] [address] Phone Care Team Providers Care Foreign Language Professor Name Role Phone Records, Outside Unavailable Unavailable Conditions or Problems Problem Name Problem Code Onset Date Status Entry Date Provider Comment Standard Description Annotate Numbness, hand 575008052 (SNOMED CT) Active Won Ford MD Numbness of limbs Neck pain 77297341 (SNOMED CT) Active Claudia Kramer MD Neck pain Headache 95612455 (SNOMED CT) Active Claudia Kramer MD Headache Medications Medication Instructions Start Date Stop Date Generic Name [facility] Provider B-12 TABLET CYANOCOBALAMIN TABS 83102962451 Claudia Kramer MD MULTIVITAMINS ORAL CAPSULE MULTIPLE VITAMIN [id number] Claudia Kramer MD OMEPRAZOLE CPDR OMEPRAZOLE CPDR [id number] Claudia Kramer MD BIOTIN CAPS BIOTIN CAPS [id number] Claudia Kramer MD VITAMIN D TABLET CHOLECALCIFEROL TABS 73939759215 Claudia Kramer MD SERTRALINE HCL TABLET SERTRALINE HCL TABS 73725100090 Claudia Kramer MD CHANTIX TABLET VARENICLINE TARTRATE TABS 47971576670 Claudia Kramer MD Medications Administered No information available. Allergies, Adverse Reactions, Alerts Allergy Name Reaction Description Start Date Severity Statu s Provider YELLOW DYE #6 Critical Active Claudia Kramer MD SULFA Critical Active Claudia montalvo MD CECLOR Critical Active Claudia montalvo MD PENICILLIN Critical Active Claudia Kramer MD Results Date Name Value Unit Range Flag Description Office Visit: fax MEDS REVIEW Done Documenta tion of current medications (procedure) SMOK STATUS former smoker Tob acco smoking status Internal Other: Authorizatio n - OBS PTSTAUTHDT Done PT Startin g Authorization Date Internal Other: Verbal Autho rization/Emergency Contact - OBS VERBAL_EMER DONE Verbal au thorization and emergency contact Internal Other: Authorizatio n - OBS [email or web address] Yes Authoriza tion: Release of Information - Authorize [facility] - Payment and Healthcare Operations ROIAUTHOTHER Yes Authoriz ation: Release of Information - Authorize Others/Insurance - Payment and Healthcare Operations HIECONSENT Yes Consent To Release information to the Health Information Exchange (HIE) [email or web address] Yes Authorizat ion: Authorization for [facility] to leave messages, voicemail, send text messages, send emails AUTHRELHCARE Yes Authoriz ation: Release/Retrieval of Information to/from Healthcare Facilities, Pharmacy Benefit Payers and Providers AUTHPRIVPRAC Yes Authoriz ation: Notice of privacy practices AUTHBENEFIT Yes Authoriza tion: Assignment of Benefits and Payment Agreement Plan of Care Type Date Detail Pending order Follow up Pending order MRI-Brain W/O Pending order We will call [facility] h test results Pending order Instructions for Staff Procedures Code Procedure Name Date Entry Date CPT-79567 Nerve Conduction 5-6 studies CPT-62906 EMG with NCS (5+ muscles) - 1 limb ORDERS Follow up CPT-92440 MRI Brain W/O [id number] MRI-Brain W/O ORDERS Instructions for Staff 04/09 ORDERS We will call with test results [facility]-[id number] Documentation of current medicatio ns [facility]-[id number] Documentation of current medicatio ns Vital Signs Date Name Value Unit Description Height 65 [in_us] height E&M BMI (Body Mass Index) 26.45 kg/m2 Bod y Mass Index (Ratio) BP Diastolic 89 mm[Hg] blood pressu re, diastolic BP Systolic 119 mm[Hg] blood pressur e, systolic Heart Rate 83 /min pulse rate Weight Measured 158.4 [lb_av] weight E& M Immunizations No information available. Advance Directives No information available.
--- OUTSIDE RECORDS SUMMARY | 2024-06-21 07:48 | XMS_ITS | Encounter Summary ---
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
[2024-06-21 08:00] LABS: Basophils Absolute Auto 0.04 K/uL (0.00-0.30); Basophils Percent Auto 0.7 % (0.0-3.0); Eosinophils Absolute Auto 0.11 K/uL (0.00-0.50); Hematocrit 42.3 % (33.0-51.0); Hemoglobin* 13.2 gm/dL (12.0-16.0); Immature Granulocytes Abs Auto 0.01 K/uL (0.00-0.30); Immature Granulocytes Pct Auto 0.2 %; Lactate* 1.6 mmol/L (0.5-1.9); Lymphocytes Absolute Auto 1.75 K/uL (0.90-2.90); Lymphocytes Percent Auto 31.6 % (20-44); Mean Corpuscular HGB Conc 31 gm/dL (32-36); Mean Corpuscular Hemoglobin 29 pg (26-34); Mean Corpuscular Volume 92 fL (80-100); Monocytes Percent Auto 6.1 % (0.0-11.0); Neutrophils Absolute Auto 3.28 K/uL (1.7-7.0); Neutrophils Percent Auto 59.4 % (42.0-72.0); Platelet Count* 319 K/uL (140-440); RDW Coefficient of Variation % 13.4 % (11.5-15.5); Red Blood Count 4.62 m/uL (4.00-5.20); White Blood Count* 5.53 K/uL (4.50-11.00)
[2024-06-21] MEDS: KETOROLAC 15 MG/ML inj IVP (08:00)
[2024-06-21] MEDS: 0.9 % SODIUM CHLORIDE 1000 ml 1,000 ML IV (08:00)
[2024-06-21 08:05] LABS: Slide Review Reflex No
[2024-06-21 08:15] LABS: Albumin* 4.4 g/dL (3.3-5.0); Chloride* 103 mmol/L (96-114)
[2024-06-21 08:16] LABS: Potassium* 4.4 mmol/L (3.6-5.1); Sodium* 138 mmol/L (135-149)
[2024-06-21 08:18] LABS: Alkaline Phosphatase* 92 U/L (40-150); Anion Gap 9 mEq/L (7-15); Aspartate Amino Transferase* 23 U/L (12-35); Bilirubin Total* 0.3 mg/dL (0.1-1.5); Blood Urea Nitrogen* 11 mg/dL (5-24); Carbon Dioxide* 26 mmol/L (20-32); Creatinine* 0.7 mg/dL (0.5-1.5); Est. Creatinine Clearance* 83.07; Estimated Glomerular Filt Rate 108 ml/min; Total Protein* 7.5 g/dL (6.0-8.3)
[2024-06-21 08:19] LABS: Alanine Aminotransferase* 17 U/L (4-35); Calcium* 9.2 mg/dL (8.4-10.6); Glucose* 86 mg/dL (60-115); Lipase* 114 U/L (23-300)
[2024-06-21 08:21] LABS: C Reactive Protein* 0.7 mg/dL (0.5-1.0)
[2024-06-21 08:31] LABS: Troponin I* < 0.01 ng/mL (0.01-0.04)
[2024-06-21] MEDS: HYDROmorphone 0.5 mg/0.5 ml inj IVP ×2 (09:14→11:52)
[2024-06-21] MEDS: GI COCKTAIL (VISC LIDO/ANTACID) 30 ML PO (10:27)
== END 2024-06-21 12:04 | disposition home or self-care (01) ==
PROVIDERS: Emergency Provider Family Medicine; PCP Physician Assistant Medical
DX: R10.9 Unspecified abdominal pain (principal)
CPT/HCPCS: 36415; 74177; 80053; 83605; 83690; 84484; 85025; 86140; 93005; 94761; 96361; 96374; 96375; 99284; 99285; A9270; J1171; J1885; J7030; Q9967

== ENCOUNTER 2025-01-27 15:55 | Outpatient (CLI) | payer BC, SELFPAY ==
--- NOTE | 2025-01-27 16:00 | MR_ITS ---
[address] [address] Phone:?[phone] Fax:?[phone] Referring Physician Information: Sacha Aldana M.D. [id number] [facility] [address] Phone:?[phone] Fax:?[phone] Patient:Marion Ruiz D.O.B:?1975 Sex:?Female Phone:?[phone] [facility] MRN:?[id number] Exam Date:?01/27/2025 EXAM: MRI of the LEFT SHOULDER, without contrast CLINICAL INFORMATION: Female, 49 years old, with left shoulder aching and pain INDICATION: Evaluate for rotator cuff tear. PRIOR SURGERY: None reported. PLAIN FILMS: Radiographs 01/08/2025 COMPARISONS: No prior MRIs available. TECHNICAL INFORMATION: Using a 1.5T MR scanner and a localizing surface coil: Coronals: PD, T2, STIR Sagittals: PD, T2 Axials: PD, T2 SEDATION: None CONTRAST: None FINDINGS: Bones: Proximal humerus: No fracture or marrow edema/pathology. Nonspecific cystic change in the greater tuberosity. No humeral Hill-Sachs or reverse Hill-Sachs lesion/impaction or contusion. Glenoid: No fracture or marrow edema/pathology. No osseous Bankart lesion. Rotator cuff and muscles/tendons: Supraspinatus: No tendinopathy, tear or atrophy. Infraspinatus: No tendinopathy, tear or atrophy. Teres minor: No tendinopathy, tear or atrophy. Subscapularis: Mild subscapularis tendinopathy with tiny regions of interstitial delamination/splitting, without high-grade tendon tear. Deltoid: No strain or atrophy. Coracoacromial arch: Acromion morphology: The acromion has type II morphology. No discrete subacromial osseous spur or os acromiale. Acromiohumeral space: The acromiohumeral space measures 5 mm. Coracohumeral space: The coracohumeral space is within normal limits. Acromioclavicular joint: Joint: Mild AC joint arthrosis. Inferior osteophytosis encroaches upon the subacromial space without significant contour deformity upon the underlying supraspinatus. Mild associated marrow edema with trace joint effusion. Ligaments: Coracoclavicular ligaments are intact. Bursae: Subacromial-subdeltoid: No convincing subacromial bursal thickening/bursitis. Subcoracoid: No convincing subcoracoid bursal thickening/bursitis. Biceps tendon: The long head of the biceps tendon is present within the bicipital groove. The intra-articular and extra-articular segments are intact without tendinosis, tenosynovitis, or displacement. Glenohumeral joint: Effusion/cyst: No significant glenohumeral joint effusion. Articular cartilage: Humeral head: Grade 2 chondral thinning involving the central humeral head articular cartilage. Minimal inferomedial humeral head osteophytosis. Glenoid: No osteochondral abnormalities. Loose bodies: No discrete intra-articular body within the joint. Labrum:?No discrete SLAP tear. No other definite evidence for labral tear. No paralabral ganglion cyst is identified. Inferior glenohumeral ligament/axillary pouch:?There is mild thickening of the inferior glenohumeral ligament, along with infiltration of the soft tissues in the rotator interval. IMPRESSION: 1. Mild subscapularis tendinopathy with tiny regions of interstitial delamination/splitting, without high-grade tendon tear. 2. Mild AC joint arthrosis with mild inferior osteophytosis. Mild narrowing of the acromiohumeral space. 3. Thickening of the inferior glenohumeral ligament along with infiltration of the soft tissues in the rotator interval, as can be seen with adhesive capsulitis in the appropriate clinical setting. 4. No labral tear or paralabral cyst. 5. No tendinopathy, tear, or displacement of the long head of the biceps tendon. 6. Mild chondral thinning of the central humeral head articular cartilage with minimal inferior osteophytosis. KME Electronically signed on 01/28/2025 10:13:00 AM by Tiana Suárez M.D.
== END 2025-01-27 15:56 | disposition home or self-care (01) ==
LOC: MRI 15:56
PROVIDERS: PCP Physician Assistant Medical; Visit Provider Orthopaedic Surgery
DX: M25.512 Pain in left shoulder (principal); M19.012 Primary osteoarthritis, left shoulder
CPT/HCPCS: 73221